=== PATIENT | female | born 1960 | race Caucasian/White ===

== ENCOUNTER 2016-10-18 15:21 | Emergency (ER) | payer MEDICARE ==
[~2016-10-18] VITALS: Ht 162.6 cm; Wt 63.5 kg
[~2016-10-18 15:21] MED LIST: ASPI81TA85 PO; CYMB1CAP4 PO; FLUO20CA8 PO; INSUHUMDS SC; INSULANT SC; LAMI25TA PO; TRAZ50TA4 PO
[2016-10-18 15:22] VITALS: BP 135/64
[2016-10-18] MEDS ORDERED: DULO30CA PO (15:32)
[2016-10-18] MEDS ORDERED: CYMB60CA3 PO (15:32)
[2016-10-18] MEDS ORDERED: LAMI1TAB8 PO (15:32)
[2016-10-18] MEDS ORDERED: ZITHTAB PO (15:49)
[2016-10-18] MEDS ORDERED: FLON1SPR (15:49)
== END 2016-10-18 15:59 | disposition home or self-care (01) ==
LOC: M ED 15:57
DX: J32.9 Chronic sinusitis, unspecified (principal); E10.9 Type 1 diabetes mellitus without complications; Z79.4 Long term (current) use of insulin; Z79.82 Long term (current) use of aspirin; Z79.899 Other long term (current) drug therapy

== ENCOUNTER 2016-11-26 11:53 | Emergency (ER) | payer MEDICARE ==
[~2016-11-26] VITALS: Ht 162.6 cm; Wt 62.1 kg
[~2016-11-26 11:53] MED LIST changes: +CYMB60CA3 PO; +DULO30CA PO; +FLON1SPR; +LAMI1TAB8 PO; +ZITHTAB PO
[2016-11-26] MEDS ORDERED: ROBA500T PO (12:49)
[2016-11-26] MEDS ORDERED: MOBI7.5T10 PO (12:49)
[2016-11-26 13:05] VITALS: BP 115/71
--- NOTE | 2016-11-26 15:08 | REP ---
LUMBAR SPINE, FIVE VIEWS: HISTORY: Back pain. There is no acute fracture. The L3-4 through L5-S1 intervertebral discs are decreased in height consistent with disc degeneration. Osteophytes are present on L3 and L4. There is narrowing of the L4-5 and L5-S1 facet joints. There are 4 mm of grade 1 spondylolisthesis of L3 on L4. IMPRESSION: Degenerative change as described above. Signed by Mazin Almanza MD 11/26/2016 03:10 P
== END 2016-11-26 13:06 | disposition home or self-care (01) ==
LOC: M ED 12:19
DX: M51.36 Other intervertebral disc degeneration, lumbar region (principal); E10.9 Type 1 diabetes mellitus without complications; F41.9 Anxiety disorder, unspecified; F33.9 Major depressive disorder, recurrent, unspecified; Z79.899 Other long term (current) drug therapy; Z79.82 Long term (current) use of aspirin; Z79.4 Long term (current) use of insulin

== ENCOUNTER 2017-07-09 15:10 | Inpatient (IN) | payer MEDICARE ==
[~2017-07-09] VITALS: Ht 162.6 cm; Wt 63.6 kg
[~2017-07-09 15:10] MED LIST changes: +MOBI4TAB PO; +ROBA500T PO; +TRAZ50TA11 PO; -TRAZ50TA4 PO
[2017-07-09] MEDS ORDERED: LORA0.5T11 PO (15:20)
[2017-07-09] MEDS ORDERED: NS 1,000 ML IV SCH (15:29)
[2017-07-09 15:47] LABS: BASO # 0.1 10^3/uL (0.0-0.2); BASO % 0.3 % (0.0-1.0); IMMATURE GRANULOCYTE % 0.6 % (0-0); LYMPH # 0.5 10^3/uL (1.5-4.5); LYMPH % 2.4 % (24.0-44.0); MEAN CORPUSCULAR HEMOGLOBIN 32.1 pg (27.0-33.0); MEAN CORPUSCULAR HGB CONC 32.8 g/dl (32.0-36.5); MEAN CORPUSCULAR VOLUME 97.9 fl (80.0-96.0); MONO # 1.3 10^3/uL (0.0-0.8); MONO % 6.2 % (0.0-5.0); NEUTROPHILS # 19.4 10^3/uL (1.8-7.7); NEUTROPHILS % 90.5 % (36.0-66.0); PLATELET COUNT, AUTOMATED 364 10^3/uL (150-450); RED CELL DISTRIBUTION WIDTH 11.9 % (11.5-14.5); WHITE BLOOD COUNT 21.5 10^3/uL (4.0-10.0)
[2017-07-09 15:48] LABS: VENOUS BASE EXCESS -13.2 (-2.0-2.0); VENOUS O2 SATURATION 67.8 % (60.0-80.0); VENOUS PARTIAL PRESSURE CO2 41.1 mmHg (38.0-50.0); VENOUS PARTIAL PRESSURE O2 38.2 mmHg (30.0-50.0); VENOUS STANDARD HCO3 13.9 MEQ/L
[2017-07-09] MEDS ORDERED: NS 1,000 ML IV ONE ×2 (16:00→17:00)
[2017-07-09 16:36] LABS: ALBUMIN 4.2 GM/DL (3.2-5.2); ALBUMIN/GLOBULIN RATIO 0.95 (1.00-1.93); BILIRUBIN,DIRECT 0.1 MG/DL (0.0-0.2); BILIRUBIN,TOTAL 0.7 MG/DL (0.2-1.0); CALCIUM LEVEL 9.6 MG/DL (8.5-10.1); CREATININE FOR GFR 1.3 MG/DL (0.55-1.02); GLOMERULAR FILTRATION RATE 44.9 (>51); POTASSIUM SERUM 4.3 MEQ/L (3.5-5.1); TOTAL PROTEIN 8.6 GM/DL (6.4-8.2)
[2017-07-09] MEDS ORDERED: BUSP10TA PO (17:07)
[2017-07-09] MEDS ORDERED: ONDANSETRON 4MG/2ML VIAL (J2405) As Ordered ONE (17:37)
[2017-07-09] MEDS ORDERED: ONDANSETRON 4MG/2ML VIAL (J2405) IV ONE (17:45)
[2017-07-09 17:48] LABS: ABG BASE EXCESS -12.5 (-2.0-2.0); ABG PARTIAL PRESSURE O2 113.6 mmHg (75.0-100.0); ABG STANDARD HCO3 14.9 MEQ/L (22.0-26.0); ABG TOTAL CO2 11.6 MEQ/L (22.0-29.0); ABG pH (ARTERIAL) 7.337 UNITS (7.350-7.450)
[2017-07-09 18:50] LABS: BASO % 0.2 % (0.0-1.0); IMMATURE GRANULOCYTE % 0.8 % (0-0); LYMPH # 0.5 10^3/uL (1.5-4.5); LYMPH % 2.5 % (24.0-44.0); MEAN CORPUSCULAR HGB CONC 32.8 g/dl (32.0-36.5); MEAN CORPUSCULAR VOLUME 97.3 fl (80.0-96.0); MONO # 0.5 10^3/uL (0.0-0.8); MONO % 2.8 % (0.0-5.0); NEUTROPHILS # 17.1 10^3/uL (1.8-7.7); NEUTROPHILS % 93.7 % (36.0-66.0); PLATELET COUNT, AUTOMATED 281 10^3/uL (150-450); RED CELL DISTRIBUTION WIDTH 12.1 % (11.5-14.5); WHITE BLOOD COUNT 18.2 10^3/uL (4.0-10.0)
[2017-07-09] MEDS ORDERED: SODIUM CHLORIDE 0.9% 1000 ML IV ONE (19:00)
--- NOTE | 2017-07-09 19:20 | REP ---
REASON FOR EXAM: Headache. COMPARISON: 12/12/2013 TECHNIQUE: 4.5 mm contiguous transaxial sections were obtained from the skull base to the cerebral convexities with thin cuts through the posterior fossa without the administration of intravenous contrast. FINDINGS: The ventricles and sulci are consistent with the patient's age. There are no extra-axial fluid collections. There is no mass effect. The deep cerebral white matter is consistent with the patient's age. The orbital and petrous structures, cerebellopontine angles, and posterior fossa are unremarkable. The sella turcica, cavernous, and paracavernous structures are essentially unremarkable. The visualized portions of the paranasal sinuses and mastoid air cells are clear. Images of the skull base show no gross abnormality. There has bene no significant change from the prior exam. IMPRESSION: Essentially unremarkable CT examination of the brain. Signed by Satnam Nath DO 07/09/2017 07:40 P
[2017-07-09 19:21] LABS: ANION GAP 20 MEQ/L (8-16); BLOOD UREA NITROGEN 23 MG/DL (7-18); CALCIUM LEVEL 8.9 MG/DL (8.5-10.1); CARBON DIOXIDE LEVEL 14 MEQ/L (21-32); CHLORIDE LEVEL 106 MEQ/L (98-107); CREATININE FOR GFR 0.95 MG/DL (0.55-1.02); GLOMERULAR FILTRATION RATE > 60.0 (>51); POTASSIUM SERUM 4.8 MEQ/L (3.5-5.1); SODIUM LEVEL 140 MEQ/L (136-145)
[2017-07-09 19:22] LABS: GLUCOSE, FASTING 407 MG/DL (70-105)
[2017-07-09] MEDS ORDERED: INSULIN IV RATE CHANGE DOCUMENTATION ML/HR XX SCH (19:30)
[2017-07-09] MEDS ORDERED: INSULIN HUMAN REGULAR 100 UNITS in NS 99 ML IV SCH ×2 (19:30→23:00)
--- NOTE | 2017-07-09 20:10 | REPUSA ---
CT of the abdomen and pelvis without contrast Clinical statement: vomiting. Technique: Multiple axial CT images were obtained from the base of the lungs to the floor of the pelv is utilizing 5 mm axial slices without administration of contrast. Coronal and sagittal reconstructio ns were also obtained. No comparison is available. Findings: Chest: The visualized lung bases are clear. Abdomen: The kidneys are normal in size bilaterally. There is no evidence of hydronephrosis. Small no nobstructing stones are seen in the kidneys bilaterally measuring up to 2 mm. Diffuse low attenuation of the hepatic parenchyma is noted. The spleen, pancreas, gallbladder and adrenal glands are unremar kable. The aorta demonstrates normal caliber and contour. There is no abdominal lymphadenopathy or as cites. Pelvis: The bowel is unremarkable, with no obstructive or inflammatory changes. The urinary bladder i s within normal limits. There is no pelvic lymphadenopathy or ascites. The other pelvic structures ap pear unremarkable. Bones: There are no suspicious osseous abnormalities seen. Impression: 1. No obstructive or inflammatory bowel changes. 2. Bilateral nonobstructing nephrolithiasis. 3. Moderate diffuse fatty infiltration of the liver.
--- NOTE | 2017-07-09 20:19 | ECGEPIP ---
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
[2017-07-09] MEDS: NS 1,000 ML IV SCH ×2 (21:01→23:47)
[2017-07-09] MEDS ORDERED: POTASSIUM CHL PWD 20 MEQ PACKET PO ONE (21:15)
[2017-07-09] MEDS ORDERED: ASPIRIN 81 MG ENTERIC TAB PO PRN (21:15)
[2017-07-09] MEDS ORDERED: KCL 20MEQ IN 100ML SWI (KRUN) 20 MEQ in APPROPRIATE DILUENT 1 EA IV ONE ×2 (21:15)
[2017-07-09] MEDS ORDERED: POTASSIUM PHOSPHATE INJ 20 MMOL in D5W 250 ML IV ONE (21:15)
[2017-07-09] MEDS ORDERED: KCL 10MEQ IN 100ML SWI (KRUN) 10 MEQ in APPROPRIATE DILUENT 1 EA IV ONE ×2 (21:15)
[2017-07-09 23:00] VITALS: BP 105/54
[2017-07-09 23:34] VITALS: BP 104/52
[2017-07-09] MEDS: LORazepam 0.5 MG TAB PO PRN (23:47)
[2017-07-09] MEDS: DULoxetine 30 MG CAP (CYMBALTA) PO SCH (23:47)
[2017-07-09] MEDS: busPIRone 10 MG TAB PO SCH (23:51)
[2017-07-10] VITALS (10 sets, daily range): BP systolic 81–100; BP diastolic 46–56
--- NOTE | 2017-07-10 00:17 | HPE ---
DATE OF ADMISSION: 07/09/2017 ADMITTING PHYSICIAN: Dr. Hasmukh Tyler PRIMARY CARE PROVIDER: Unknown. HISTORY OF THE PRESENT ILLNESS: This is a pleasant 56-year-old female who was presenting to the emergency department (ED) for not feeling well since the evening prior to presentation. She is partially answering questions appropriately but then gets sidetracked significantly during the exam. She is an insulin-dependent diabetic who wears a MiniMed 522 insulin pump. She notes that for her diabetes, she follows with [facility], but she is unable to elaborate some more. She currently states she is not seeing a primary care physician in the [place] area. According to the patient, she got sick the night before, having a headache, and she took some insulin and went to bed. When she woke up this morning, still felt sick, checked her glucose level, which was at the 325 level. She took some more insulin, but when she rechecked her glucose a couple hours later, it was still 399, and she came to the ED in the afternoon time. She states that she is having nausea and vomiting symptoms and having significant polydipsia. She states this is the first time she has had these symptoms and never had them in the past. She has a decreased appetite at this time. She states that she called her doctor's office and told her to come to the ED for her insulin levels must be adjusted. She is unable to elaborate some more. PAST MEDICAL HISTORY: 1. Insulin-dependent diabetes. 2. Bipolar disorder. 3. Anxiety disorder. PAST SURGICAL HISTORY: section. HOME MEDICATIONS: - aspirin 81 mg twice a day as needed for pain - buspirone 10 mg by mouth twice a day - Cymbalta 30 mg capsule nightly - Cymbalta 60 mg by mouth daily - lorazepam 0.5 mg by mouth twice a day as needed for anxiety - insulin human lispro one unit per 0.01 mL injection insulin pump - Lamictal 150 mg by mouth daily SOCIAL HISTORY: The patient lives in [place], currently , lives with her dog. Denies tobacco and illicit drug use. Admits to drinking socially, alcohol. FAMILY HISTORY: Noncontributory. REVIEW OF SYSTEMS: As noted in the history of the present illness, the patient was unable to fully describe all the symptoms that she is experiencing. She did state she has polydipsia, dry mouth, nausea, vomiting, headache. Denies any fevers or chills. Denies any palpitations or shortness of breath, or trouble breathing. Admits to foggy mind and decreased appetite. PHYSICAL EXAMINATION: VITAL SIGNS: Temperature 97.0, pulse 104, respiratory rate 16, blood pressure 122/60, MAP of 80, pulse oximetry of 100% on room air. GENERAL: She is a pleasant 56-year-old female who appears her stated age, well nourished, well developed, altered mental, slightly lethargic during examination. She is very pleasant and is appropriately answering some of the questions. HEENT: Normocephalic, atraumatic. No scleral icterus or conjunctival injection appreciated. No nystagmus. Extraocular movements are intact bilaterally. Mucous membranes slightly dry. Pharynx is pink with no cobblestoning. NECK: Supple. No lymphadenopathy or jugular venous distention (JVD) appreciated. CHEST: Tachycardic rhythm and rate. No murmurs, rubs or gallops, though. LUNGS: Fair to auscultate bilaterally. No wheezing, rales or rhonchi appreciated. ABDOMEN: Soft, nontender, nondistended abdomen. Positive bowel sounds throughout. No rebound, no guarding. Insulin pump insertion point appreciated on the left side. No erythema or irritated at the area. EXTREMITIES: Pulses 2+ bilaterally in the dorsalis pedis. No pedal edema is appreciated. SKIN: [place], dry and warm. No tenting is appreciated. Capillary reflux is less than 2 seconds. NEUROLOGIC: The patient is alert slightly, appropriately answering some questions but very sluggishly answering a lot of the questions. Even patient understands this is not close to her baseline. LABORATORY: Hematology: WBC of 18.2, hemoglobin 13.3, hematocrit 39.9, platelets of 281. Blood gas: ABG pH of 7.337, pCO2 of 21.0, HCO3 of 113.6, base excess -12.5. Chemistries: Sodium 140, potassium 4.8, chloride of 106, carbon dioxide 14, BUN of 23, creatinine of 0.95, anion gap of 20, fasting glucose of 407, lactic acid of 4.7, calcium of 8.9. Toxicology showed beta-hydroxybutyrate of greater than 46. IMAGING: Head CT showed unremarkable CT examination of the brain. Abdomen and pelvis CT: Impression: (1) No obstruction or inflammatory bowel changes. (2) Bilateral nonobstructing nephrolithiasis. (3) Moderate diffuse fatty infiltration of the liver. EKG done in the ER showed sinus rhythm, rate of 93, [place] of 166, QRSD 98, QT 391, QTc 488. ASSESSMENT AND PLAN: This is a 56-year-old female with a pertinent medical history of insulin-dependent diabetes, presenting today for altered mental status and hyperglycemia. The patient will be admitted for diabetic ketoacidosis. 1. Diabetic ketoacidosis. With the patient's altered mental status and elevated glucose of 407 and a beta-hydroxybutyrate of 46, the patient has diabetic ketoacidosis (DKA) and will be admitted to the intensive care unit (ICU). We will follow the DKA protocol. In the ER, the patient has already gotten two 1-liter boluses, and she has been started on regular insulin at 6 units. We have ordered fluids at normal saline at 150 mL per hour. We have also added potassium supplementation as well. 2. History of bipolar disorder. We have held the patient's Lamictal for now and currently pending Lamictal levels. 3. General anxiety disorder. The patient will continue with her Cymbalta home dosage and has lorazepam as needed for anxiety. 4. Deep vein thrombosis (DVT) prophylaxis. Lovenox 40 mg subcu daily. 5. Diet: Consistent carbohydrate diet. My attending on this case is Dr. Hasmukh Tyler. Patient will be admitted to Dr. Lore Morales in the AM. My faculty preceptor for this patient encounter was physically present during the encounter and was fully available. All aspects of the patient interview, examination, medical decision making process, and medical care plan development were reviewed and approved by the faculty preceptor. The faculty preceptor is aware and concurs with the plan as stated in the body of this note and will attest to such by his/her cosignature. NATASHA
[2017-07-10 00:41] LABS: CALCIUM LEVEL 8.9 MG/DL (8.5-10.1); CREATININE FOR GFR 1.03 MG/DL (0.55-1.02); GLOMERULAR FILTRATION RATE 58.8 (>51); POTASSIUM SERUM 4.7 MEQ/L (3.5-5.1)
[2017-07-10] MEDS: D5W/0.45% SODIUM CHLORIDE 1,000 ML IV SCH ×2 (00:45→11:20)
[2017-07-10] MEDS: INSULIN IV RATE CHANGE DOCUMENTATION ML/HR XX SCH ×7 (00:47→15:00)
[2017-07-10 05:19] LABS: MEAN CORPUSCULAR HEMOGLOBIN 32.4 pg (27.0-33.0); MEAN CORPUSCULAR HGB CONC 33.5 g/dl (32.0-36.5); MEAN CORPUSCULAR VOLUME 96.5 fl (80.0-96.0); PLATELET COUNT, AUTOMATED 259 10^3/uL (150-450); RED CELL DISTRIBUTION WIDTH 12.5 % (11.5-14.5); WHITE BLOOD COUNT 22.1 10^3/uL (4.0-10.0)
[2017-07-10 05:34] LABS: ANION GAP 9 MEQ/L (8-16); BLOOD UREA NITROGEN 19 MG/DL (7-18); CALCIUM LEVEL 8.3 MG/DL (8.5-10.1); CARBON DIOXIDE LEVEL 21 MEQ/L (21-32); CHLORIDE LEVEL 110 MEQ/L (98-107); CREATININE FOR GFR 0.96 MG/DL (0.55-1.02); GLOMERULAR FILTRATION RATE > 60.0 (>51); GLUCOSE, FASTING 229 MG/DL (70-105); POTASSIUM SERUM 4.5 MEQ/L (3.5-5.1); SODIUM LEVEL 140 MEQ/L (136-145)
[2017-07-10] MEDS ORDERED: SODIUM CHLORIDE 0.9% 1000 ML IV ONE (07:45)
--- NOTE | 2017-07-10 08:10 | REP ---
Portable chest, 08:13 a.m., single AP view, patient sitting: The lung holden are clear. The cardiac size is normal. The sophia, mediastinum, and bony thorax are unremarkable. Impression: Negative portable chest. Signed by Bradley Murrell MD 07/10/2017 08:01 A
[2017-07-10] MEDS: busPIRone 10 MG TAB PO SCH ×2 (08:23→20:32)
[2017-07-10] MEDS: ENOXAPARIN 40 MG/0.4 ML SYRINGE (J1650) SC SCH (08:23)
[2017-07-10] MEDS: CHLORHEXIDINE ORAL RINSE 0.12%/15ML 120ML BOTTLE MT SCH ×2 (08:24→20:32)
[2017-07-10] MEDS: DULoxetine 30 MG CAP (CYMBALTA) PO SCH ×2 (08:24→20:32)
[2017-07-10 08:26] LABS: MEAN CORPUSCULAR HEMOGLOBIN 32.4 pg (27.0-33.0); MEAN CORPUSCULAR VOLUME 95.2 fl (80.0-96.0); PLATELET COUNT, AUTOMATED 275 10^3/uL (150-450); RED CELL DISTRIBUTION WIDTH 12.6 % (11.5-14.5); WHITE BLOOD COUNT 24.1 10^3/uL (4.0-10.0)
[2017-07-10 08:31] LABS: ADD MANUAL DIFFER YES; DIFF SLIDE NUMBER 111; POSITIVE DIFF POS FLAG; VENOUS BASE EXCESS -5.6 (-2.0-2.0); VENOUS O2 SATURATION 87.9 % (60.0-80.0); VENOUS PARTIAL PRESSURE CO2 38.3 mmHg (38.0-50.0); VENOUS PARTIAL PRESSURE O2 51.6 mmHg (30.0-50.0); VENOUS STANDARD HCO3 19.7 MEQ/L; VENOUS TOTAL CO2 20.9 MEQ/L (24.0-28.0)
[2017-07-10 08:54] LABS: ANION GAP 11 MEQ/L (8-16); BLOOD UREA NITROGEN 17 MG/DL (7-18); CALCIUM LEVEL 8.8 MG/DL (8.5-10.1); CARBON DIOXIDE LEVEL 21 MEQ/L (21-32); CHLORIDE LEVEL 110 MEQ/L (98-107); CREATININE FOR GFR 0.96 MG/DL (0.55-1.02); GLOMERULAR FILTRATION RATE > 60.0 (>51); GLUCOSE, FASTING 200 MG/DL (70-105); POTASSIUM SERUM 4.4 MEQ/L (3.5-5.1); SODIUM LEVEL 142 MEQ/L (136-145)
[2017-07-10] MEDS ORDERED: IPRATROPIUM 0.5MG/ALBUTEROL 2.5MG INH SOL UD 3ML (DUONEB)(J7620) NEB PRN (10:30)
[2017-07-10] MEDS: guaiFENesin ER 600 MG TAB PO SCH ×2 (11:19→20:32)
[2017-07-10 16:38] LABS: ANION GAP 5 MEQ/L (8-16); BLOOD UREA NITROGEN 14 MG/DL (7-18); CALCIUM LEVEL 8.5 MG/DL (8.5-10.1); CARBON DIOXIDE LEVEL 25 MEQ/L (21-32); CHLORIDE LEVEL 109 MEQ/L (98-107); CREATININE FOR GFR 0.71 MG/DL (0.55-1.02); GLOMERULAR FILTRATION RATE > 60.0 (>51); GLUCOSE, FASTING 179 MG/DL (70-105); SODIUM LEVEL 139 MEQ/L (136-145)
[2017-07-10] MEDS ORDERED: HumaLOG INSULIN (NovoLOG) PER UNIT XX SCH (18:30)
[2017-07-10 21:05] LABS: ANION GAP 7 MEQ/L (8-16); BLOOD UREA NITROGEN 13 MG/DL (7-18); CALCIUM LEVEL 9.2 MG/DL (8.5-10.1); CARBON DIOXIDE LEVEL 24 MEQ/L (21-32); CHLORIDE LEVEL 107 MEQ/L (98-107); CREATININE FOR GFR 0.81 MG/DL (0.55-1.02); GLOMERULAR FILTRATION RATE > 60.0 (>51); GLUCOSE, FASTING 239 MG/DL (70-105); POTASSIUM SERUM 3.2 MEQ/L (3.5-5.1); SODIUM LEVEL 138 MEQ/L (136-145)
[2017-07-10] MEDS ORDERED: POTASSIUM CHLORIDE 10 MEQ SR TABLET PO ONE (21:30)
[2017-07-11] VITALS: BP 112/55
[2017-07-11 04:00] VITALS: BP 122/61
[2017-07-11 04:49] LABS: MEAN CORPUSCULAR HEMOGLOBIN 32.8 pg (27.0-33.0); MEAN CORPUSCULAR HGB CONC 34.1 g/dl (32.0-36.5); PLATELET COUNT, AUTOMATED 208 10^3/uL (150-450); RED CELL DISTRIBUTION WIDTH 12.8 % (11.5-14.5); WHITE BLOOD COUNT 12.1 10^3/uL (4.0-10.0)
[2017-07-11 05:33] LABS: ANION GAP 6 MEQ/L (8-16); BLOOD UREA NITROGEN 10 MG/DL (7-18); CALCIUM LEVEL 8.8 MG/DL (8.5-10.1); CARBON DIOXIDE LEVEL 25 MEQ/L (21-32); CHLORIDE LEVEL 108 MEQ/L (98-107); CREATININE FOR GFR 0.67 MG/DL (0.55-1.02); GLOMERULAR FILTRATION RATE > 60.0 (>51); GLUCOSE, FASTING 275 MG/DL (70-105); POTASSIUM SERUM 4.2 MEQ/L (3.5-5.1); SODIUM LEVEL 139 MEQ/L (136-145)
[2017-07-11 08:00] VITALS: BP 108/60
[2017-07-11] MEDS: CHLORHEXIDINE ORAL RINSE 0.12%/15ML 120ML BOTTLE MT SCH (08:20)
[2017-07-11] MEDS: busPIRone 10 MG TAB PO SCH (08:21)
[2017-07-11] MEDS: guaiFENesin ER 600 MG TAB PO SCH (08:21)
[2017-07-11] MEDS: DULoxetine 30 MG CAP (CYMBALTA) PO SCH (08:21)
[2017-07-11] MEDS: ENOXAPARIN 40 MG/0.4 ML SYRINGE (J1650) SC SCH (08:25)
[2017-07-11] MEDS: LORazepam 0.5 MG TAB PO PRN (12:13)
--- NOTE | 2017-07-11 15:02 | IPN ---
DATE: 07/10/2017 The patient is a 56-year-old female who is presenting to the emergency department not feeling well since the evening prior. On initial presentation, the patient was alert and cooperative. The patient does have a history of insulin-dependent diabetes. She was on a Mini-Med 522 insulin pump. The patient reported that she noticed her pump was not functioning. She subsequently called the company and they gave her advice on how to fix it. She was unable to fix it. She then called her primary care provider and was instructed to go to the emergency department because insulin was not working. When she presented to the emergency department, her blood glucose was 399. She was admitted to the intensive care unit (ICU) under diabetic ketoacidosis. She was given IV fluids, given potassium, started on regular insulin. The patient was treated with DKA protocol. This morning, the patient was pleasant and conversational. The patient admitted that she does not remember exactly when she feels that her insulin pump started malfunctioning; however, she does remember that she was suffering from bronchitis the week prior and she was on antibiotics for it. Chest x-ray was negative. CT of the head was normal. Pending blood cultures. CT of the abdomen showed fatty infiltrates of the liver. PHYSICAL EXAMINATION: Vital signs: Temperature 98.6, pulse is 94, respiratory rate is 18, blood pressure is 87/55. The patient runs in this category and that is around her normal blood pressure level. Pulse oximetry is 95% on room air. GENERAL: The patient is alert, very conversational. The patient is oriented to time, place, person. CARDIAC: S1, S2 present. Within normal limits. No murmurs, rubs or gallops are detected. LUNGS: Clear to auscultation anteriorly bilaterally and posterior. ABDOMEN: Soft, nontender. No organomegaly detected. No pain to palpation. EXTREMITIES: No cyanosis. No discoloration. No bruising. Pulses present in all extremities. ASSESSMENT: 1. Diabetic ketoacidosis. The patient had an insulin drip and her glucose was titrated down to 200. Her anion gap normalized to 11. Insulin drip was discontinued. The patient had her potassium also normalized by IV. The patient's BUN also normalized. The patient's creatinine also normalized. The patient was discontinued from diabetic protocol. She was started on before food and nightly fingerstick glucose with a consistent carbohydrate diet. She was also started on Humalog at the use of patient's discretion. The patient had her underwriting sales representative reassess the insulin pump and was told that the insulin pump was functioning well. The patient was allowed to use her insulin pump as she does at home. At this moment, it is my impression that the patient has had her DKA resolved. We will continue to monitor the patient for any changes. 2. Generalized anxiety disorder. The patient will be allowed to continue on her Cymbalta at her home dosage, and she also has lorazepam for anxiety. 3. Deep vein thrombosis (DVT) prophylaxis. The patient is on Lovenox 40 mg subcutaneously daily. 4. Diet will consist of consistent carbohydrate diet. My faculty preceptor for this patient encounter was physically present during the encounter and was fully available. All aspects of the patient interview, examination, medical decision making process, and medical care plan development were reviewed and approved by the faculty preceptor. The faculty preceptor is aware and concurs with the plan as stated in the body of this note and will attest to such by his/her co-signature. NATASHA
--- NOTE | 2017-07-11 16:10 | DS.PDOC ---
Discharge Summary General Date of Admission Jul 09, 2017 at 21:01 Date of Discharge 07/11/2017 Attending Physician: AYSHA MUPRHY MD Discharge Summary PROCEDURES PERFORMED DURING STAY: EKG ADMITTING/DISCHARGE DIAGNOSES 1. Diabetic ketoacidosis 2. Bipolar disorder. 3. Anxiety COMPLICATIONS/CHIEF COMPLAINT: DKA (Diabetic Ketoacidosis). HISTORY OF PRESENT ILLNESS/HOSPITAL COURSE: A 56-year-old female, with a history of insulin-dependent diabetes who has a MiniMed 522 insulin pump, presented to the ED for not feeling well since the prior evening. When she woke up in the morning, she checked her blood glucose and it was 325, she would then take some insulin and rechecked her blood sugar 2 hours later and it was 399. That is why she came to the ED. On Presentation she complained of nausea, vomiting and significant polydipsia, with decreased appetite. She did admit to feeling like she is getting over an acute episode of bronchitis. In the the ED her sugar was 347. She was admitted to ICU for DKA. She was started fluids, insulin drip, and potassium replacement. By the end of the second day of hospitalization, patient had a normalized bicarbonate, carbon dioxide, her anion gap had also normalized, along with her ph. Pateint was alert and did not exhibit any signs of distress or altered mental status.She was allowed to use her home insulin pump after a merchandising representative of the insulin pump company determine that the pump was functioning well. She was started on a low carbohydrate diet, and allowed to adjust her insulin as she does at home. On day of discharge patient made a complete recovery labs are normalized and was stable for discharge. DISCHARGE MEDICATIONS: Please see below. ALLERGIES: Please see below. PHYSICAL EXAMINATION ON DISCHARGE: VITAL SIGNS: Please see below. The patient is alert, very conversational. The patient is oriented to time, place, person. CARDIAC: S1, S2 present. Within normal limits. No murmurs, rubs or gallops are detected. LUNGS: Clear to auscultation anteriorly bilaterally and posterior. ABDOMEN: Soft, nontender. No organomegaly detected. No pain to palpation. EXTREMITIES: No cyanosis. No discoloration. No bruising. Pulses present in all extremities. LABORATORY DATA: Please see below. IMAGING: Head CT:Essentially unremarkable CT examination of the brain. CT of the abdomen pelvis with contrast:Impression: no obstructive or inflammatory bowel changes. Bilateral nonobstructing nephrolithiasis. Moderate diffuse fatty infiltration of the liver. Chest x-ray:Negative portable chest. PROGNOSIS: Stable ACTIVITY: As tolerated DIET: Low carbohydrate, diabetic diet DISCHARGE PLAN: Discharged home DISPOSITION: Fair DISCHARGE INSTRUCTIONS: 1. Follow-up a new PCP in the [facility] clinic 2. Monitor blood sugar levels 3. Show proper function insulin pump ITEMS TO FOLLOWUP ON ON OUTPATIENT: 1. PCP needs to make a referral to local anesthesiology resident who is capable of management 2. Diabetes, insulin-dependent. 3. Anxiety, Bipolar disorder. DISCHARGE CONDITION: Stable. TIME SPENT ON DISCHARGE: Greater than 40 minutes. Vital Signs/I&Os Vital Signs Date Time Temp Pulse Resp B/P (MAP) Pulse Ox O2 Delivery O2 Flow Rate FiO2 07/11/17 08:00 98.2 81 17 108/60 (76) 98 Room Air I&O- Last 24 Hours up to 6 AM 07/12/17 06:00 Intake Total 480 ml Output Total 600 ml Balance -120 ml Laboratory Data Labs 24H Laboratory Tests 2 07/10/17 14:22: Bedside Glucose (Misc Panel) 203H 07/10/17 15:09: Bedside Glucose (Misc Panel) 168H 07/10/17 15:58: Anion Gap 5L, Glomerular Filtration Rate > 60.0, Blood Urea Nitrogen 14, Creatinine 0.71, Sodium Level 139, Potassium Level 4.0, Chloride Level 109H, Carbon Dioxide Level 25, Calcium Level 8.5, Total Creatine Kinase 81, Creatine Kinase MB 2.0, Creatine Kinase MB Relative Index 2.46, Troponin I 0.13H, C- Reactive Protein, Quantitative 1.18H 07/10/17 16:12: Bedside Glucose (Misc Panel) 164H 07/10/17 17:06: Bedside Glucose (Misc Panel) 174H 07/10/17 18:30: Bedside Glucose (Misc Panel) 158H 07/10/17 19:39: Bedside Glucose (Misc Panel) 217H 07/10/17 19:59: Anion Gap 7L, Glomerular Filtration Rate > 60.0, Blood Urea Nitrogen 13, Creatinine 0.81, Sodium Level 138, Potassium Level 3.2L, Chloride Level 107, Carbon Dioxide Level 24, Calcium Level 9.2 07/11/17 04:25: Nucleated Red Blood Cells % (auto) 0.0, Anion Gap 6L, Glomerular Filtration Rate > 60.0, Blood Urea Nitrogen 10, Creatinine 0.67, Sodium Level 139, Potassium Level 4.2#, Chloride Level 108H, Carbon Dioxide Level 25, Calcium Level 8.8, Total Creatine Kinase 100, Magnesium Level 2.0, Creatine Kinase MB 1.6, Creatine Kinase MB Relative Index 1.60, Troponin I 0.11H 07/11/17 08:43: Bedside Glucose (Misc Panel) 231H 07/11/17 11:18: Bedside Glucose (Misc Panel) 307H CBC/BMP Laboratory Tests 07/10/17 15:58 Calcium Level 8.5, Total Creatine Kinase 81 07/10/17 19:59 Calcium Level 9.2 07/11/17 04:25 Calcium Level 8.8, Total Creatine Kinase 100, Red Blood Count 3.51 L, Mean Corpuscular Volume 96.0, Mean Corpuscular Hemoglobin 32.8, Mean Corpuscular Hemoglobin Concent 34.1, Red Cell Distribution Width 12.8 FSBS Laboratory Tests Test 07/10/17 14:22 07/10/17 15:09 07/10/17 16:12 07/10/17 17:06 Range/Units Bedside Glucose (Misc Panel) 203 168 164 174 70-105 MG/DL Test 07/10/17 18:30 07/10/17 19:39 07/11/17 08:43 07/11/17 11:18 Range/Units Bedside Glucose (Misc Panel) 158 217 231 307 70-105 MG/DL Microbiology Microbiology 07/09/17 Blood Culture - Preliminary, Resulted No growth after 24 hours . All specim... 07/09/17 Blood Culture - Preliminary, Resulted No growth after 24 hours . All specim... 07/10/17 Respiratory Virus Panel (PCR) (ALLIE) - Final, Complete Discharge Medications Scheduled Buspirone HCl (Buspirone HCl) 10 Mg Tab, 10 MG PO BID, (Reported) Duloxetine Hcl (Cymbalta) 30 Mg Cap, 30 MG PO QHS, (Reported) Duloxetine Hcl (Cymbalta) 60 Mg Cap, 60 MG PO DAILY, (Reported) Insulin Human Lispro (Humalog) 1 Units/0.01 Ml Inj, SC ASDIRECTED, (Reported) PATIENT HAS INSULIN PUMP Lamotrigine (Lamictal) 150 Mg Tab, 150 MG PO DAILY, (Reported) Scheduled PRN Aspirin (Aspir-81) 81 Mg Tab, 81 MG PO BID PRN for PAIN, (Reported) Lorazepam (Lorazepam) 0.5 Mg Tab, 0.5 MG PO BID PRN for ANXIETY, (Reported) Allergies Coded Allergies: No Known Drug Allergy (Verified Allergy, Unknown, 12/12/13) GME ATTESTATION GME ATTESTATION My faculty preceptor for this patient encounter was physically present during the encounter and was fully available. All aspects of the patient interview, examination, medical decision making process, and medical care plan development were reviewed and approved by the faculty preceptor. The faculty preceptor is aware and concurs with the plan as stated in the body of this note and will attest to such by his/her cosignature. CHIKIS WATTS DO Jul 11, 2017 14:16
== END 2017-07-11 13:20 | disposition home or self-care (01) | DRG 639 ==
LOC: M ED 15:10 → M ED INP 21:01 → M ICU 23:13
PROVIDERS: ADMIT Hospitalist; ATTEND Internal Medicine
DX: E11.10 Type 2 diabetes mellitus with ketoacidosis without coma (principal); R41.82 Altered mental status, unspecified; F41.1 Generalized anxiety disorder; F31.9 Bipolar disorder, unspecified; Z79.82 Long term (current) use of aspirin; Z79.4 Long term (current) use of insulin; Z79.899 Other long term (current) drug therapy; Z96.41 Presence of insulin pump (external) (internal)

== ENCOUNTER 2017-08-31 11:48 | Emergency (ER) | payer MEDICARE | END 2017-08-31 12:41 | disposition left against medical advice (07) | LOC: M ED 11:48 | DX: Z53.29 Procedure and treatment not carried out because of patient's decision for other reasons (principal) ==

== ENCOUNTER → 2017-11-30 | Outpatient (REF) | payer MEDICARE ==
[2017-11-30 16:38] LABS: ANION GAP 6 MEQ/L (8-16); BLOOD UREA NITROGEN 10 MG/DL (7-18); CALCIUM LEVEL 9.6 MG/DL (8.5-10.1); CARBON DIOXIDE LEVEL 32 MEQ/L (21-32); CHLORIDE LEVEL 101 MEQ/L (98-107); CHOLESTEROL LEVEL 212 MG/DL (<200); CHOLESTEROL RISK RATIO 1.696 (<5); CREATININE FOR GFR 0.71 MG/DL (0.55-1.30); GLOMERULAR FILTRATION RATE > 60.0 (>51); GLUCOSE, FASTING 125 MG/DL (70-100); HDL CHOLESTEROL 125 MG/DL (>40); LDL CHOLESTEROL 76.6 MG/DL (<100); NON-HDL-C 87 MG/DL; POTASSIUM SERUM 3.7 MEQ/L (3.5-5.1); SODIUM LEVEL 139 MEQ/L (136-145); TOTAL 25(OH) VITAMIN D 20.5 NG/ML (30.0-100.0); TRIGLYCERIDES LEVEL 52 MG/DL (<150)
[2017-11-30 17:09] LABS: CREATININE, URINE 21.4 MG/DL; MALB URINE SIEMENS < 5.0 MG/L; MAU/CREAT RATIO 23.3 MCG/MG (0.0-30.0)
[2017-11-30 17:18] LABS: HIV 1&2 SCREEN CENTAUR NEGATIVE (NEGATIVE)
[2017-11-30 17:18] LABS: HEPATITIS C VIRUS ABY INDEX < 0.0 INDEX (<0.8)
== END ==
LOC: M LABDRAW1 12:37
DX: Z11.59 Encounter for screening for other viral diseases (principal); Z11.4 Encounter for screening for human immunodeficiency virus [HIV]; Z13.220 Encounter for screening for lipoid disorders; E55.9 Vitamin D deficiency, unspecified; E10.40 Type 1 diabetes mellitus with diabetic neuropathy, unspecified
CPT/HCPCS: 82306

== ENCOUNTER 2018-04-23 20:12 | Emergency (ER) | payer OTHER, MEDICARE ==
[2018-04-23 21:19] LABS: BEDSIDE GLUCOSE 28 MG/DL (70-105)
[2018-04-23 21:20] LABS: BEDSIDE GLUCOSE 248 MG/DL (70-105)
[2018-04-23 21:49] LABS: BEDSIDE GLUCOSE 231 MG/DL (70-105)
== END 2018-04-23 22:10 | disposition home or self-care (01) ==
LOC: M ED 20:12
DX: E11.649 Type 2 diabetes mellitus with hypoglycemia without coma (principal); F33.9 Major depressive disorder, recurrent, unspecified; Z79.4 Long term (current) use of insulin
CPT/HCPCS: 99284

== ENCOUNTER → 2018-10-12 | Outpatient (REF) | payer MEDICARE ==
[~2018-10-12] MED LIST changes: +BUSP10TA PO; +LORA0.5T11 PO; +TRAZ-160 PO; -TRAZ50TA11 PO
== END ==
LOC: M SFHCWAGY 13:50
PROVIDERS: ATTEND Nurse Practitioner Family
DX: Z12.4 Encounter for screening for malignant neoplasm of cervix (principal); R87.5 Abnormal microbiological findings in specimens from female genital organs

== ENCOUNTER → 2018-10-12 | Outpatient (CLI) | payer MEDICARE ==
--- NOTE | 2018-10-12 16:18 | REPMRS ---
Patient History The patient states she had a clinical breast exam in 09/2018. Patient is postmenopausal. Family history of breast cancer at age 50 or over in maternal grandmother. No Hormone Replacement Therapy Digital Woman Screen Mammo: October 12, 2018 - Exam #: [id number] Bilateral CC and MLO view(s) were taken. Technologist: Ashley Lux, Technologist Prior study comparison: January 10, 2015, digital woman screen mammo performed at [facility]. November 29, 2013, digital woman screen mammo performed at [facility]. July 07, 2012, bilateral bilat screen digital mammo, performed at [facility]. FINDINGS: The breast tissue is heterogeneously dense. This may lower the sensitivity of mammography. There is a moderate amount of heterogeneously dense fibroglandular tissue which is fairly symmetric. There is no interval development of dominant mass, architectural distortion, or clustered microcalcification typical of malignancy. There has been no change in the appearance of the mammogram from the prior studies. 3-D tomosynthesis shows no additional findings. Assessment: BI-RADS/ACR category 1 mammogram. Negative Mammogram. Recommendation Routine screening mammogram of both breasts in 1 year (for women over age 40). This patient's Lifetime Breast Cancer RIsk is estimated at 13.8 %. This mammogram was interpreted with the aid of an FDA-approved computer-aided dectection system. Electronically Signed By: Nikolai Stanton MD 10/12/18 [id number]
== END ==
LOC: M WHC 13:01
PROVIDERS: ATTEND Family Medicine
DX: Z12.31 Encounter for screening mammogram for malignant neoplasm of breast (principal); Z78.0 Asymptomatic menopausal state; Z80.3 Family history of malignant neoplasm of breast

== ENCOUNTER 2019-06-01 18:15 | Emergency (ER) | payer MEDICARE ==
[~2019-06-01] VITALS: Ht 162.6 cm; Wt 73.2 kg
[2019-06-01 18:15] VITALS: BP 126/61
[~2019-06-01 18:15] MED LIST changes: -DULO30CA PO; +DULO30CA9 PO; -TRAZ-160 PO; +TRAZ-252 PO
[2019-06-01] MEDS ORDERED: BUSP5TA PO (18:24)
[2019-06-01] MEDS ORDERED: NS 1,000 ML IV ONE (19:30)
== END 2019-06-01 20:16 | disposition left against medical advice (07) ==
LOC: M ED 18:15
DX: E11.65 Type 2 diabetes mellitus with hyperglycemia (principal); R11.2 Nausea with vomiting, unspecified; F41.9 Anxiety disorder, unspecified; Z53.21 Procedure and treatment not carried out due to patient leaving prior to being seen by health care provider; Z79.82 Long term (current) use of aspirin; Z79.4 Long term (current) use of insulin; Z79.899 Other long term (current) drug therapy

== ENCOUNTER → 2019-06-14 | Outpatient (REF) | payer MEDICARE ==
[~2019-06-14] MED LIST changes: +BUSP5TA PO
[2019-06-14 16:36] LABS: CREATININE, URINE < 13.0 MG/DL; MALB URINE SIEMENS < 5.0 MG/L
== END ==
LOC: M LAB REF 15:30
PROVIDERS: ATTEND Internal Medicine Endocrinology, Diabetes & Metabolism
DX: E10.649 Type 1 diabetes mellitus with hypoglycemia without coma (principal)
CPT/HCPCS: 82043; G0463

== ENCOUNTER → 2019-10-11 | Outpatient (REF) | payer MEDICARE ==
[~2019-10-11] MED LIST changes: +FLUO20CA20 PO; -FLUO20CA8 PO; -LORA0.5T11 PO; +LORA0.5T5 PO
== END ==
LOC: M SFHCPLAZ 15:14
PROVIDERS: ATTEND Family Medicine
DX: M85.80 Other specified disorders of bone density and structure, unspecified site (principal)

== ENCOUNTER → 2020-01-05 | Outpatient (CLI) | payer MEDICARE ==
--- NOTE | 2020-01-05 14:58 | REPMRS ---
Patient History The patient states she had a clinical breast exam in December 2019. Family history of breast cancer at age 50 or over in maternal grandmother. No Hormone Replacement Therapy 3D TOMOSYNTHESIS WAS PERFORMED. The Lynda Emery lifetime risk for breast cancer is 13.4%. YOHANNES Vega Digital Woman Screen Mammo: January 05, 2020 - Exam #: [id number] Bilateral CC and MLO view(s) were taken. Technologist: Ame Sin, Technologist Prior study comparison: October 12, 2018, bilateral digital woman screen mammo performed at [facility]. January 10, 2015, digital woman screen mammo performed at [facility]. FINDINGS: The breast tissue is heterogeneously dense. This may lower the sensitivity of mammography. There has been no change in the appearance of the mammogram from the prior studies. There is a moderate amount of residual fibroglandular tissue which is fairly symmetric. There is no interval development of dominant mass, areas of architectural distortion, or clustered microcalcification typical of malignancy. Assessment: BI-RADS/ACR category 1 mammogram. Negative Mammogram. Recommendation Routine screening mammogram in 1 year (for women over age 40). This mammogram was interpreted with the aid of an FDA-approved computer-aided dectection system. Electronically Signed By: Bradley Serra MD 01/05/20 [id number]
== END ==
LOC: M WHC 13:05
PROVIDERS: ATTEND Student in an Organized Health Care Education/Training Program
DX: Z12.31 Encounter for screening mammogram for malignant neoplasm of breast (principal); M85.88 Other specified disorders of bone density and structure, other site; Z80.3 Family history of malignant neoplasm of breast

== ENCOUNTER → 2020-08-31 | Outpatient (REF) | payer MEDICARE ==
[~2020-08-31] MED LIST changes: -ASPI81TA85 PO; +ASPI81TA86 PO
[2020-08-31 17:37] LABS: CREATININE, URINE 17.5 MG/DL; MALB URINE SIEMENS < 5.0 MG/L; MAU/CREAT RATIO 28.5 MCG/MG (0.0-30.0)
== END ==
LOC: M LAB REF 16:43
PROVIDERS: ATTEND Internal Medicine Endocrinology, Diabetes & Metabolism
DX: E10.649 Type 1 diabetes mellitus with hypoglycemia without coma (principal)

== ENCOUNTER → 2020-10-31 | Outpatient (CLI) | payer MEDICARE ==
--- NOTE | 2020-10-31 12:58 | REP ---
INDICATION: PAIN COMPARISON: None. TECHNIQUE: There are four views. FINDINGS: There is no fracture or dislocation. Mineralization and joint spaces are normal. There are no calcifications or foreign bodies. IMPRESSION: Essentially negative left wrist. . <Electronically signed by Bradley Murrell > 10/31/20 [id number]
== END ==
LOC: M WUC 11:47
PROVIDERS: ATTEND Physician Assistant
DX: M25.532 Pain in left wrist (principal)

== ENCOUNTER → 2020-11-27 | Outpatient (REF) | payer MEDICARE ==
[2020-11-27 15:01] LABS: BASO % 0.3 % (0.0-1.0); EOS # 0.1 10^3/uL (0.0-0.5); EOS % 1.3 % (0.0-3.0); HEMATOCRIT 46.8 % (36.0-47.0); HEMOGLOBIN 15.7 g/dl (12.0-15.5); LYMPH # 1.7 10^3/uL (1.5-5.0); LYMPH % 27.8 % (24.0-44.0); MEAN CORPUSCULAR HEMOGLOBIN 32.2 pg (27.0-33.0); MEAN CORPUSCULAR HGB CONC 33.5 g/dl (32.0-36.5); MEAN CORPUSCULAR VOLUME 95.9 fl (80.0-96.0); MONO # 0.6 10^3/uL (0.0-0.8); MONO % 10.1 % (2.0-8.0); NEUTROPHILS # 3.6 10^3/uL (1.5-8.5); NEUTROPHILS % 60.2 % (36.0-66.0); PLATELET COUNT, AUTOMATED 328 10^3/uL (150-450); RED BLOOD COUNT 4.88 10^6/uL (4.00-5.40)
[2020-11-27 15:31] LABS: BLOOD UREA NITROGEN 7 MG/DL (7-18); CARBON DIOXIDE LEVEL 33 MEQ/L (21-32); CHLORIDE LEVEL 102 MEQ/L (98-107); CREATININE FOR GFR 0.71 MG/DL (0.55-1.30); GLOMERULAR FILTRATION RATE > 60.0 (>45); GLUCOSE, FASTING 212 MG/DL (70-100); POTASSIUM SERUM 5.1 MEQ/L (3.5-5.1); SODIUM LEVEL 139 MEQ/L (136-145)
== END ==
LOC: M PLALAB 14:45
PROVIDERS: ATTEND Student in an Organized Health Care Education/Training Program
DX: G25.9 Extrapyramidal and movement disorder, unspecified (principal); T43.505A Adverse effect of unspecified antipsychotics and neuroleptics, initial encounter

== ENCOUNTER → 2021-01-08 | Outpatient (REF) | payer MEDICARE | LOC: M PLALAB 15:05 | PROVIDERS: ATTEND Student in an Organized Health Care Education/Training Program | DX: Z12.4 Encounter for screening for malignant neoplasm of cervix (principal); E83.52 Hypercalcemia; E10.9 Type 1 diabetes mellitus without complications; R87.618 Other abnormal cytological findings on specimens from cervix uteri | CPT/HCPCS: 87624; G0123 ==

== ENCOUNTER → 2021-01-08 | Outpatient (CLI) | payer MEDICARE ==
--- NOTE | 2021-01-08 17:45 | REPMRS ---
Patient History The patient states she had a clinical breast exam in December 2020. Family history of breast cancer at age 50 or over in maternal grandmother. No Hormone Replacement Therapy Tomosynthesis is performed. Volpara breast density is c. Tyrer-zick lifetime risk of breast cancer 13.0%. Patient states no breast complaints today. Patient has signed MRS History Sheet. Digital Woman Screen Mammo: January 08, 2021 - Exam #: [id number] Bilateral CC and MLO view(s) were taken. Technologist: Doreen Reed, Technologist Prior study comparison: January 05, 2020, bilateral digital woman screen mammo performed at [facility]. October 12, 2018, bilateral digital woman screen mammo performed at [facility]. FINDINGS: The breast tissue is heterogeneously dense. This may lower the sensitivity of mammography. There has been no change in the appearance of the mammogram from the prior studies. There is a moderate amount of residual fibroglandular tissue which is fairly symmetric. There is no interval development of dominant mass, areas of architectural distortion, or clustered microcalcification typical of malignancy. Assessment: BI-RADS/ACR category 1 mammogram. Negative Mammogram. Recommendation Routine screening mammogram in 1 year (for women over age 40). This mammogram was interpreted with the aid of an FDA-approved computer-aided dectection system. Electronically Signed By: Bradley Serra MD 01/08/21 [id number]
== END ==
LOC: M WHC 15:16
PROVIDERS: ATTEND Advanced Practice Midwife
DX: Z12.31 Encounter for screening mammogram for malignant neoplasm of breast (principal); Z80.3 Family history of malignant neoplasm of breast

== ENCOUNTER → 2021-01-29 | Outpatient (CLI) | payer MEDICARE ==
[2021-01-29 18:56] LABS: BLOOD UREA NITROGEN 9 MG/DL (7-18); CREATININE FOR GFR 0.69 MG/DL (0.55-1.30); GLOMERULAR FILTRATION RATE > 60.0 (>45); GLUCOSE, FASTING 175 MG/DL (70-100); SODIUM LEVEL 140 MEQ/L (136-145)
[2021-01-29 18:57] LABS: CALCIUM LEVEL 10.1 MG/DL (8.8-10.2); CARBON DIOXIDE LEVEL 28 MEQ/L (21-32); CHLORIDE LEVEL 103 MEQ/L (98-107); CHOLESTEROL LEVEL 212 MG/DL (<200); CHOLESTEROL RISK RATIO 1.981 (<5); HDL CHOLESTEROL 107 MG/DL (>40); LDL CHOLESTEROL 92 MG/DL (<100); NON-HDL-C 105 MG/DL; PHOSPHORUS LEVEL 2.9 MG/DL (2.5-4.9); POTASSIUM SERUM 3.7 MEQ/L (3.5-5.1); TOTAL PROTEIN 7.1 GM/DL (6.4-8.2); TRIGLYCERIDES LEVEL 67 MG/DL (<150)
[2021-01-29 19:02] LABS: PTH INTACT 28.2 PG/ML (18.5-88.0)
[2021-01-29 20:35] LABS: HEMOGLOBIN A1c 7.3 %
[2021-01-31 14:05] LABS: ALBUMIN 4.38 GM/DL (3.29-5.55); ALBUMIN % 61.7 % (55.8-66.1); ALPHA-1-GLOBULIN % 4.4 % (2.9-4.9); ALPHA-1-GLOBULINS 0.31 GM/DL (0.17-0.41); ALPHA-2-GLOBULINS 0.82 GM/DL (0.42-0.99); ALPHA-2-GLOBULINS % 11.5 % (7.1-11.8); BETA-1-GLOBULINS 0.38 GM/DL (0.28-0.60); BETA-1-GLOBULINS % 5.4 % (4.7-7.2); BETA-2-GLOBULINS 0.32 GM/DL (0.19-0.55); BETA-2-GLOBULINS % 4.5 % (3.2-6.5); GAMMA GLOBULIN % 12.5 % (11.1-18.8); GAMMA GLOBULINS 0.89 GM/DL (0.65-1.58)
== END ==
LOC: M PLALAB 14:29
PROVIDERS: ATTEND Student in an Organized Health Care Education/Training Program
DX: E83.52 Hypercalcemia (principal); E10.9 Type 1 diabetes mellitus without complications

== ENCOUNTER → 2021-04-24 | Outpatient (CLI) | payer MEDICARE ==
--- NOTE | 2021-04-27 10:21 | ECGEPIP ---
[facility] Test Date: 2021-04-24 Pat Name: CANDACE AGUILAR Department: Room: - Gender: Female Manager Web Application: ashley : 1960 Requested By: Sandra Hudson Order Number: [id number] Reading MD: Myron Dickinson Measurements Intervals [place] Rate: 84 P: 61 AR: 160 QRS: -4 QRSD: 78 T: 54 QT: 396 QTc: 467 Interpretive Statements Normal sinus rhythm, Within normal limits. No significant change compared with 07/09/2017. Electronically Signed on 04-27-2021 10:21:17 EDT by Myron Dickinson
== END ==
LOC: M EKG 16:08
PROVIDERS: ATTEND Psychiatry & Neurology Psychiatry
DX: Z51.81 Encounter for therapeutic drug level monitoring (principal); Z79.899 Other long term (current) drug therapy

== ENCOUNTER → 2021-10-18 | Outpatient (REF) | payer MEDICARE ==
[~2021-10-18] MED LIST changes: -CYMB60CA3 PO; +CYMB60CA4 PO; +FLUO-96 PO; -FLUO20CA20 PO
[2021-10-18 17:54] LABS: MALB URINE SIEMENS 15.5 MG/L; MAU/CREAT RATIO 9.6 MCG/MG (0.0-30.0)
== END ==
LOC: M LAB REF 16:44
PROVIDERS: ATTEND Nurse Practitioner Family
DX: E10.649 Type 1 diabetes mellitus with hypoglycemia without coma (principal)

== ENCOUNTER → 2022-01-22 | Outpatient (CLI) | payer MEDICARE | LOC: M WHC 11:28 | PROVIDERS: ATTEND Family Medicine | DX: Z12.31 Encounter for screening mammogram for malignant neoplasm of breast (principal); M85.88 Other specified disorders of bone density and structure, other site ==

== ENCOUNTER → 2022-01-22 | Outpatient (CLI) | payer MEDICARE ==
[2022-01-22 15:36] LABS: BASO % 0.6 % (0.0-1.0); EOS # 0.2 10^3/uL (0.0-0.5); EOS % 3.1 % (0.0-3.0); HEMOGLOBIN 15.5 g/dl (12.0-15.5); LYMPH % 18.2 % (24.0-44.0); MEAN CORPUSCULAR HEMOGLOBIN 32.4 pg (27.0-33.0); MEAN CORPUSCULAR HGB CONC 33.7 g/dl (32.0-36.5); MONO # 0.4 10^3/uL (0.0-0.8); MONO % 8.1 % (2.0-8.0); NEUTROPHILS # 3.8 10^3/uL (1.5-8.5); NEUTROPHILS % 69.8 % (36.0-66.0); PLATELET COUNT, AUTOMATED 264 10^3/uL (150-450); RED BLOOD COUNT 4.79 10^6/uL (4.00-5.40); WHITE BLOOD COUNT 5.4 10^3/uL (4.0-10.0)
[2022-01-22 16:11] LABS: HEMOGLOBIN A1c 7.9 %
[2022-01-22 16:15] LABS: ALT/SGPT 100 U/L (12-78); BILIRUBIN,TOTAL 0.6 MG/DL (0.2-1.0); BLOOD UREA NITROGEN 12 MG/DL (7-18); CALCIUM LEVEL 10.2 MG/DL (8.8-10.2); CARBON DIOXIDE LEVEL 30 MEQ/L (21-32); CHLORIDE LEVEL 105 MEQ/L (98-107); CHOLESTEROL LEVEL 166 MG/DL (<200); CREATININE FOR GFR 0.68 MG/DL (0.55-1.30); FREE T4 0.78 NG/DL (0.76-1.46); GLOMERULAR FILTRATION RATE > 60.0 (>45); GLUCOSE, FASTING 180 MG/DL (70-100); HDL CHOLESTEROL 105 MG/DL (>40); LDL CHOLESTEROL 46 MG/DL (<100); NON-HDL-C 61 MG/DL; POTASSIUM SERUM 5.4 MEQ/L (3.5-5.1); SODIUM LEVEL 140 MEQ/L (136-145); TOTAL PROTEIN 7.1 GM/DL (6.4-8.2); TRIGLYCERIDES LEVEL 75 MG/DL (<150)
[2022-01-22 16:20] LABS: CREATININE, URINE 35.7 MG/DL; MALB URINE SIEMENS 8.7 MG/L; MAU/CREAT RATIO 24.3 MCG/MG (0.0-30.0)
[2022-01-22 16:27] LABS: PTH INTACT 52.9 PG/ML (18.5-88.0); TOTAL 25(OH) VITAMIN D 43.2 NG/ML (30.0-100.0); VITAMIN B12 LEVEL 709 PG/ML (247-911)
== END ==
LOC: M PLALAB 12:33
PROVIDERS: ATTEND Family Medicine
DX: E10.40 Type 1 diabetes mellitus with diabetic neuropathy, unspecified (principal); E55.9 Vitamin D deficiency, unspecified; E78.00 Pure hypercholesterolemia, unspecified

== ENCOUNTER → 2022-02-27 | Outpatient (CLI) | payer MEDICARE | LOC: M RAD 11:11 | PROVIDERS: ATTEND Family Medicine | DX: K76.0 Fatty (change of) liver, not elsewhere classified (principal) ==

== ENCOUNTER → 2022-04-03 | Outpatient (REF) | payer MEDICARE | LOC: EEVIPCON 17:00 → M SFHCPLAZ 17:00 | PROVIDERS: ATTEND Family Medicine | DX: L02.811 Cutaneous abscess of head [any part, except face] (principal); L98.499 Non-pressure chronic ulcer of skin of other sites with unspecified severity ==

== ENCOUNTER → 2022-11-27 | Outpatient (CLI) | payer MEDICARE ==
[2022-11-27 13:23] LABS: BASO % 0.6 % (0.0-1.0); EOS # 0.1 10^3/uL (0.0-0.5); EOS % 1.3 % (0.0-3.0); HEMATOCRIT 46.2 % (36.0-47.0); HEMOGLOBIN 14.9 g/dl (12.0-15.5); LYMPH # 0.9 10^3/uL (1.5-5.0); MEAN CORPUSCULAR HEMOGLOBIN 32.3 pg (27.0-33.0); MEAN CORPUSCULAR HGB CONC 32.3 g/dl (32.0-36.5); MEAN CORPUSCULAR VOLUME 100.2 fl (80.0-96.0); MONO # 0.5 10^3/uL (0.0-0.8); MONO % 10.4 % (2.0-8.0); NEUTROPHILS # 3.2 10^3/uL (1.5-8.5); NEUTROPHILS % 68.5 % (36.0-66.0); PLATELET COUNT, AUTOMATED 273 10^3/uL (150-450); RED BLOOD COUNT 4.61 10^6/uL (4.00-5.40); WHITE BLOOD COUNT 4.7 10^3/uL (4.0-10.0)
[2022-11-27 13:27] LABS: FERRITIN 55.6 NG/ML (7.3-270.7)
[2022-11-27 13:29] LABS: TOTAL 25(OH) VITAMIN D 25.6 NG/ML (20.0-100.0)
[2022-11-27 13:30] LABS: ALBUMIN 4.1 G/DL (3.2-5.2); ALKALINE PHOSPHATASE 133 U/L (46-116); ALT/SGPT 98 U/L (7.0-40); AST/SGOT 63 U/L (<34); BILIRUBIN,TOTAL 0.7 MG/DL (0.3-1.2); BLOOD UREA NITROGEN 10 MG/DL (9-23); CALCIUM LEVEL 9.7 MG/DL (8.3-10.6); CARBON DIOXIDE LEVEL 34 MMOL/L (20-31); CHLORIDE LEVEL 103 MMOL/L (98-107); CREATININE FOR GFR 0.57 MG/DL (0.55-1.30); GLOMERULAR FILTRATION RATE > 60.0 (>45); GLUCOSE, FASTING 119 MG/DL (74-106); POTASSIUM SERUM 4.4 MMOL/L (3.5-5.1); SODIUM LEVEL 140 MMOL/L (136-145); TOTAL PROTEIN 6.7 G/DL (5.7-8.2)
[2022-11-27 14:27] LABS: HEMOGLOBIN A1c 7.8 % (4.0-6.0)
[2022-11-27 16:50] LABS: PTH INTACT 97.6 PG/ML (18.5-88.0)
[2022-11-28 19:08] LABS: IMMUNOTYPING SERUM IGA SO 168 mg/dL (87-352); IMMUNOTYPING SERUM IGM SO 37 mg/dL (26-217)
== END ==
LOC: M PLALAB 10:15
PROVIDERS: ATTEND Family Medicine
DX: E10.40 Type 1 diabetes mellitus with diabetic neuropathy, unspecified (principal); K76.0 Fatty (change of) liver, not elsewhere classified; E55.9 Vitamin D deficiency, unspecified; D75.89 Other specified diseases of blood and blood-forming organs

== ENCOUNTER → 2022-11-27 | Outpatient (CLI) | payer MEDICARE | LOC: M WHC 10:00 | PROVIDERS: ATTEND Family Medicine | DX: Z12.39 Encounter for other screening for malignant neoplasm of breast (principal) ==

== ENCOUNTER 2023-07-17 16:11 | Inpatient (IN) | payer MEDICARE ==
[2023-07-17] VITALS (21 sets, daily range): BP systolic 71–103; BP diastolic 38–54; TEMP 94.6–100; O2SAT 100
[~2023-07-17] VITALS: Ht 162.6 cm; Wt 69.2 kg
[2023-07-17] MEDS: PANTOPRAZOLE 40MG VIAL IV SCH (09:00)
[2023-07-17] MEDS ORDERED: NS 1,000 ML IV ONE (16:20)
[2023-07-17] MEDS ORDERED: SODIUM BICARBONATE 8.4% INJ 50ML SYRINGE As Ordered ONE (16:32)
[2023-07-17] MEDS ORDERED: NOREPINEPHRINE 4MG IN D5 250ML 4 MG in IV 1 EA IV SCH ×2 (16:40)
[2023-07-17] MEDS ORDERED: ROCURONIUM BROMIDE 50MG/5ML VIAL IV ONE (16:45)
[2023-07-17] MEDS ORDERED: MIDAZOLAM INJ 2MG/2ML VIAL IV ONE (16:45)
[2023-07-17] MEDS: MIDAZOLAM 100MG/100ML-0.9%NACL 100 MG in IV 1 EA IV SCH ×2 (16:45→21:16)
[2023-07-17] MEDS ORDERED: ETOMIDATE INJ 20MG/10ML VIAL IV ONE (16:45)
[2023-07-17 16:58] LABS: ABG BASE EXCESS -25.5 (-2.0-2.0); ABG O2 SATURATION 99.5 % (95.0-99.0); ABG PARTIAL PRESSURE CO2 29.2 mmHg (35.0-45.0); ABG PARTIAL PRESSURE O2 264.8 mmHg (75.0-100.0); ABG TOTAL CO2 6.9 MMOL/L (23.0-31.0)
[2023-07-17 17:00] LABS: ABG pH (ARTERIAL) 6.931 UNITS (7.350-7.450)
[2023-07-17] MEDS ORDERED: HumuLIN R (REGULAR) INSULIN (NovoLIN R) **100U/ML** PER UNIT IV ONE (17:00)
[2023-07-17] MEDS ORDERED: INSULIN REGULAR IN 0.9 % NACL 100 UNIT in IV 1 EA IV SCH ×2 (17:00)
[2023-07-17 17:08] LABS: BASO # 0.2 10^3/uL (0.0-0.2); BASO % 0.6 % (0.0-1.0); EOS % 0.1 % (0.0-3.0); HEMATOCRIT 49.3 % (36.0-47.0); HEMOGLOBIN 14.9 g/dl (12.0-15.5); LYMPH # 3.1 10^3/uL (1.5-5.0); LYMPH % 10.8 % (24.0-44.0); MEAN CORPUSCULAR HEMOGLOBIN 33.9 pg (27.0-33.0); MEAN CORPUSCULAR HGB CONC 30.2 g/dl (32.0-36.5); MONO % 6.6 % (2.0-8.0); NEUTROPHILS # 22.5 10^3/uL (1.5-8.5); NEUTROPHILS % 77.8 % (36.0-66.0); PLATELET COUNT, AUTOMATED 346 10^3/uL (150-450); WHITE BLOOD COUNT 28.9 10^3/uL (4.0-10.0)
[2023-07-17 17:20] LABS: MONO # 1.9 10^3/uL (0.0-0.8)
[2023-07-17 17:36] LABS: AMPHETAMINES LEVEL URINE NEGATIVE (NEGATIVE); BARBITURATES URINE NEGATIVE (NEGATIVE); BENZODIAZEPINES URINE NEGATIVE (NEGATIVE); CANNABINOIDS URINE NEGATIVE (NEGATIVE); COCAINE METABOLITE URINE NEGATIVE (NEGATIVE); METHADONE URINE NEGATIVE (NEGATIVE); OPIATES URINE NEGATIVE (NEGATIVE); PHENCYCLIDINE URINE NEGATIVE (NEGATIVE)
[2023-07-17 17:40] LABS: SALICYLATE LEVEL < 3.0 MG/DL (<30)
[2023-07-17] MEDS ORDERED: INSULIN IV RATE CHANGE DOCUMENTATION ML/HR XX SCH (18:00)
[2023-07-17] MEDS ORDERED: propofoL 1,000 MG in IV 1 EA IV SCH (18:00)
[2023-07-17 18:08] LABS: ACETONE/KETONE > 4.50 MMOL/L (0.02-0.27); CPK CREATINE PHOSPHOKINASE 326 U/L (34-145)
[2023-07-17 18:10] LABS: ALBUMIN 3.8 G/DL (3.2-5.2); ALKALINE PHOSPHATASE 162 U/L (46-116); ALT/SGPT 40 U/L (7.0-40); AST/SGOT 45 U/L (<34); BILIRUBIN,DIRECT < 0.1 MG/DL (<0.4); BILIRUBIN,TOTAL 0.2 MG/DL (0.3-1.2); BLOOD UREA NITROGEN 50 MG/DL (9-23); CALCIUM LEVEL 9.9 MG/DL (8.3-10.6); CARBON DIOXIDE LEVEL < 10.0 MMOL/L (20-31); CHLORIDE LEVEL 97 MMOL/L (98-107); CK-MB VALUE MASS 5.3 NG/ML (<3.6); GLOMERULAR FILTRATION RATE 25.3 (>45); MB/CK RELATIVE INDEX 1.62 (< OR =4); POTASSIUM SERUM 5.5 MMOL/L (3.5-5.1); SODIUM LEVEL 134 MMOL/L (136-145); THYROID STIMULATING HORMONE 1.196 uIU/ML (0.55-4.78); TOTAL PROTEIN 6.6 G/DL (5.7-8.2)
[2023-07-17] MEDS: LR 1,000 ML IV SCH ×2 (18:31→22:36)
[2023-07-17 18:44] LABS: GLUCOSE, FASTING 1065 MG/DL (74-106)
[2023-07-17] MEDS: INSULIN REGULAR IN 0.9 % NACL 100 UNIT in IV 1 EA IV SCH ×2 (18:47)
[2023-07-17] MEDS: INSULIN IV RATE CHANGE DOCUMENTATION ML/HR XX SCH (20:00)
[2023-07-17] MEDS ORDERED: HumuLIN R (REGULAR) INSULIN (NovoLIN R) **100U/ML** PER UNIT SC ONE (21:00)
[2023-07-17] MEDS ORDERED: HEPARIN SOD (PORCINE) 5000UNITS/ML 1ML VIAL/SYRINGE SQ SCH (21:00)
[2023-07-17] MEDS: HEPARIN SOD (PORCINE) 5000UNITS/ML 1ML VIAL/SYRINGE SC SCH (21:07)
[2023-07-17 21:46] LABS: BLOOD UREA NITROGEN 48 MG/DL (9-23); CALCIUM LEVEL 8.3 MG/DL (8.3-10.6); CARBON DIOXIDE LEVEL < 10.0 MMOL/L (20-31); CHLORIDE LEVEL 110 MMOL/L (98-107); CREATININE FOR GFR 1.87 MG/DL (0.55-1.30); GLOMERULAR FILTRATION RATE 28.9 (>45); GLUCOSE, FASTING 723 MG/DL (74-106); MAGNESIUM LEVEL 2.6 MG/DL (1.8-2.4); PHOSPHORUS LEVEL 4.9 MG/DL (2.4-5.1); POTASSIUM SERUM 4.7 MMOL/L (3.5-5.1); SODIUM LEVEL 145 MMOL/L (136-145)
[2023-07-17 21:55] LABS: ABG BASE EXCESS -22.1 (-2.0-2.0); ABG O2 SATURATION 98.8 % (95.0-99.0); ABG PARTIAL PRESSURE CO2 20.3 mmHg (35.0-45.0); ABG PARTIAL PRESSURE O2 136.4 mmHg (75.0-100.0); ABG STANDARD HCO3 8.8 MMOL/L. (22.0-26.0); ABG TOTAL CO2 6.6 MMOL/L (23.0-31.0); ABG pH (ARTERIAL) 7.089 UNITS (7.350-7.450)
[2023-07-17] MEDS ORDERED: AUST9TAB PO (22:06)
[2023-07-17] MEDS ORDERED: MED REC COMMENT (22:07)
[2023-07-17] MEDS ORDERED: HOME MED LIST COMPLETE! XX SCH (22:10)
[2023-07-17] MEDS ORDERED: MIDAZOLAM INJ 2MG/2ML VIAL IV PRN (22:30)
[2023-07-17] MEDS ORDERED: SODIUM BICARBONATE 150 MEQ in STERILE WATER LITER BAG 1,000 ML IV SCH (23:00)
[2023-07-18] VITALS (101 sets, daily range): BP systolic 83–126; BP diastolic 46–72; TEMP 99.7–100.2; O2SAT 91–100
[2023-07-18] MEDS ORDERED: HumuLIN R (REGULAR) INSULIN (NovoLIN R) **100U/ML** PER UNIT SC ONE (00:15)
[2023-07-18 00:23] LABS: VENOUS BASE EXCESS -18.5 (-2.0-2.0); VENOUS HCO3 8.6 MMOL/L (23.0-27.0); VENOUS PARTIAL PRESSURE CO2 24.9 mmHg (38.0-50.0); VENOUS PARTIAL PRESSURE O2 150.8 mmHg (30.0-50.0); VENOUS PH 7.156 UNITS (7.330-7.430); VENOUS STANDARD HCO3 11.1 MMOL/L; VENOUS TOTAL CO2 9.4 MMOL/L (24.0-28.0)
[2023-07-18] MEDS ORDERED: HumuLIN R (REGULAR) INSULIN (NovoLIN R) **100U/ML** PER UNIT IV STA (00:36)
[2023-07-18] MEDS: INSULIN REGULAR IN 0.9 % NACL 100 UNIT in IV 1 EA IV SCH ×2 (00:47)
[2023-07-18] MEDS: NOREPINEPHRINE 4MG IN D5 250ML 4 MG in IV 1 EA IV SCH ×4 (00:50→13:58)
[2023-07-18 00:58] LABS: BLOOD UREA NITROGEN 49 MG/DL (9-23); CALCIUM LEVEL 8.4 MG/DL (8.3-10.6); CARBON DIOXIDE LEVEL < 10.0 MMOL/L (20-31); CHLORIDE LEVEL 111 MMOL/L (98-107); CREATININE FOR GFR 1.84 MG/DL (0.55-1.30); GLOMERULAR FILTRATION RATE 29.5 (>45); GLUCOSE, FASTING 603 MG/DL (74-106); PHOSPHORUS LEVEL 2.1 MG/DL (2.4-5.1); POTASSIUM SERUM 3.8 MMOL/L (3.5-5.1); SODIUM LEVEL 145 MMOL/L (136-145)
[2023-07-18 02:50] LABS: BLOOD UREA NITROGEN 49 MG/DL (9-23); CALCIUM LEVEL 8.5 MG/DL (8.3-10.6); CARBON DIOXIDE LEVEL < 10.0 MMOL/L (20-31); CHLORIDE LEVEL 112 MMOL/L (98-107); CREATININE FOR GFR 1.84 MG/DL (0.55-1.30); GLOMERULAR FILTRATION RATE 29.5 (>45); GLUCOSE, FASTING 518 MG/DL (74-106); POTASSIUM SERUM 3.6 MMOL/L (3.5-5.1); SODIUM LEVEL 146 MMOL/L (136-145)
[2023-07-18] MEDS: INSULIN IV RATE CHANGE DOCUMENTATION ML/HR XX SCH ×9 (04:08→16:00)
[2023-07-18] MEDS ORDERED: LR 1,000 ML IV SCH (04:45)
[2023-07-18] MEDS: HEPARIN SOD (PORCINE) 5000UNITS/ML 1ML VIAL/SYRINGE SC SCH ×3 (05:03→21:04)
[2023-07-18 05:26] LABS: ABG BASE EXCESS -2.6 (-2.0-2.0); ABG HCO3 19.4 MMOL/L (22.0-26.0); ABG O2 SATURATION 98.9 % (95.0-99.0); ABG PARTIAL PRESSURE CO2 26.2 mmHg (35.0-45.0); ABG PARTIAL PRESSURE O2 129.7 mmHg (75.0-100.0); ABG STANDARD HCO3 22.4 MMOL/L. (22.0-26.0); ABG TOTAL CO2 20.2 MMOL/L (23.0-31.0); ABG pH (ARTERIAL) 7.487 UNITS (7.350-7.450)
[2023-07-18 05:44] LABS: CALCIUM LEVEL 8.8 MG/DL (8.3-10.6); CREATININE FOR GFR 1.78 MG/DL (0.55-1.30); GLOMERULAR FILTRATION RATE 30.6 (>45); MAGNESIUM LEVEL 1.8 MG/DL (1.8-2.4); POTASSIUM SERUM 3.2 MMOL/L (3.5-5.1)
[2023-07-18] MEDS: KCL 10MEQ/100ML SWI (KRUN) 10 MEQ in IV 1 EA IV SCH ×3 (06:25→08:29)
[2023-07-18] MEDS: KCL 40MEQ IN D5/0.45NS 1000ML 1,000 ML IV SCH ×2 (06:45→12:55)
[2023-07-18] MEDS ORDERED: POTASSIUM PHOSPHATE INJ 20 MMOL in D5W 250 ML IV ONE (07:30)
[2023-07-18] MEDS ORDERED: LR 1,000 ML IV ONE (09:00)
[2023-07-18 09:02] LABS: BASO % 0.1 % (0.0-1.0); HEMATOCRIT 36.1 % (36.0-47.0); HEMOGLOBIN 12.6 g/dl (12.0-15.5); LYMPH # 0.5 10^3/uL (1.5-5.0); LYMPH % 2.8 % (24.0-44.0); MEAN CORPUSCULAR HGB CONC 34.9 g/dl (32.0-36.5); MEAN CORPUSCULAR VOLUME 94.5 fl (80.0-96.0); MONO % 9.6 % (2.0-8.0); NEUTROPHILS # 15.8 10^3/uL (1.5-8.5); NEUTROPHILS % 86.1 % (36.0-66.0); PLATELET COUNT, AUTOMATED 229 10^3/uL (150-450); RED BLOOD COUNT 3.82 10^6/uL (4.00-5.40); WHITE BLOOD COUNT 18.4 10^3/uL (4.0-10.0)
[2023-07-18] MEDS: PANTOPRAZOLE 40MG VIAL IV SCH (09:13)
[2023-07-18 09:28] LABS: CALCIUM LEVEL 8.5 MG/DL (8.3-10.6); CREATININE FOR GFR 1.69 MG/DL (0.55-1.30); GLOMERULAR FILTRATION RATE 32.5 (>45); MAGNESIUM LEVEL 1.7 MG/DL (1.8-2.4); POTASSIUM SERUM 3.6 MMOL/L (3.5-5.1)
[2023-07-18 09:43] LABS: PHOSPHORUS LEVEL 0.6 MG/DL (2.4-5.1)
[2023-07-18] MEDS ORDERED: dexmedeTOMidine 200 MCG in IV 1 EA IV SCH (09:50)
[2023-07-18] MEDS ORDERED: MAG SULF 1GM/100ML (MAG RUN) 1 GM in IV 1 EA IV ONE ×2 (10:00→21:05)
[2023-07-18 10:43] LABS: MONO # 1.8 10^3/uL (0.0-0.8)
[2023-07-18] MEDS ORDERED: POTASSIUM PHOSPHATE INJ 30 MMOL in D5W 500 ML IV ONE (11:00)
[2023-07-18 14:05] LABS: CALCIUM LEVEL 8.3 MG/DL (8.3-10.6); CREATININE FOR GFR 1.52 MG/DL (0.55-1.30); GLOMERULAR FILTRATION RATE 36.8 (>45); MAGNESIUM LEVEL 1.9 MG/DL (1.8-2.4); PHOSPHORUS LEVEL 2.6 MG/DL (2.4-5.1); POTASSIUM SERUM 4.6 MMOL/L (3.5-5.1)
[2023-07-18] MEDS ORDERED: GLUCAGON INJ 1MG VIAL SC PRN (14:15)
[2023-07-18] MEDS ORDERED: GLUCOSE 4GM CHEW TABLET PO PRN (14:15)
[2023-07-18] MEDS: INSULIN LISPRO (NovoLOG) PER UNIT SC SCH ×2 (14:48→17:01)
[2023-07-18] MEDS: LEVEMIR (INSULIN DETEMIR) 1 UNITS/0.01ML SC SCH ×2 (14:53→21:04)
[2023-07-18] MEDS ORDERED: D5W/LR 1,000 ML IV SCH (15:00)
[2023-07-18 16:35] LABS: CALCIUM LEVEL 8.2 MG/DL (8.3-10.6); CREATININE FOR GFR 1.48 MG/DL (0.55-1.30); GLOMERULAR FILTRATION RATE 37.9 (>45); MAGNESIUM LEVEL 1.8 MG/DL (1.8-2.4); PHOSPHORUS LEVEL 3.5 MG/DL (2.4-5.1); POTASSIUM SERUM 5.2 MMOL/L (3.5-5.1)
[2023-07-18] MEDS: LR 1,000 ML IV SCH ×2 (17:29→23:37)
[2023-07-18 20:26] LABS: CALCIUM LEVEL 8.4 MG/DL (8.3-10.6); CREATININE FOR GFR 1.39 MG/DL (0.55-1.30); GLOMERULAR FILTRATION RATE 40.8 (>45); MAGNESIUM LEVEL 1.7 MG/DL (1.8-2.4); PHOSPHORUS LEVEL 2.5 MG/DL (2.4-5.1); POTASSIUM SERUM 4.3 MMOL/L (3.5-5.1)
[2023-07-18] MEDS ORDERED: propofoL 1,000 MG in IV 1 EA IV SCH (23:30)
[2023-07-19] VITALS (87 sets, daily range): BP systolic 69–180; BP diastolic 51–99; TEMP 98.6–101.5; O2SAT 77–100
[2023-07-19 04:50] LABS: CALCIUM LEVEL 8.2 MG/DL (8.3-10.6); CREATININE FOR GFR 1.23 MG/DL (0.55-1.30); GLOMERULAR FILTRATION RATE 46.9 (>45); PHOSPHORUS LEVEL 2.8 MG/DL (2.4-5.1); POTASSIUM SERUM 4.1 MMOL/L (3.5-5.1)
[2023-07-19] MEDS: DEXTROSE 50% 50ML SYRINGE IV PRN ×2 (04:59→05:19)
[2023-07-19] MEDS ORDERED: fentaNYL CITRATE/NaCl 1,000 MCG in IV 1 EA IV SCH (05:25)
[2023-07-19] MEDS ORDERED: FENTANYL DRIP LOCK BOX KEY 1 EACH XX PRN (05:25)
[2023-07-19] MEDS: INSULIN LISPRO (NovoLOG) PER UNIT SC SCH ×5 (05:28→23:23)
[2023-07-19] MEDS: HEPARIN SOD (PORCINE) 5000UNITS/ML 1ML VIAL/SYRINGE SC SCH ×3 (05:28→21:53)
[2023-07-19] MEDS ORDERED: LR 1,000 ML IV SCH ×2 (08:00→20:00)
[2023-07-19] MEDS: AUSTEDO 6 MG PO SCH ×2 (09:00→20:53)
[2023-07-19] MEDS ORDERED: IPRATROPIUM 0.5MG/ALBUTEROL 2.5MG INH SOL UD 3ML (DUONEB) NEB PRN (09:25)
[2023-07-19] MEDS: LEVEMIR (INSULIN DETEMIR) 1 UNITS/0.01ML SC SCH ×2 (10:03→20:48)
[2023-07-19] MEDS: PANTOPRAZOLE 40MG VIAL IV SCH (10:03)
[2023-07-19] MEDS: D10W/0.45% SODIUM CHLORIDE 1,000 ML IV SCH ×2 (10:24→17:52)
[2023-07-19] MEDS: DULoxetine 30MG CAPSULE (CYMBALTA) PO SCH (11:13)
[2023-07-19] MEDS ORDERED: FUROSEMIDE 20MG/2ML VIAL As Ordered ONE (13:10)
[2023-07-19] MEDS ORDERED: FUROSEMIDE 100MG/10ML VIAL IV ONE (13:30)
[2023-07-19] MEDS: NOREPINEPHRINE 4MG IN D5 250ML 4 MG in IV 1 EA IV SCH ×4 (15:16→21:53)
[2023-07-19 16:11] LABS: CALCIUM LEVEL 7.8 MG/DL (8.3-10.6); CREATININE FOR GFR 1.08 MG/DL (0.55-1.30); GLOMERULAR FILTRATION RATE 54.5 (>45); POTASSIUM SERUM 4.1 MMOL/L (3.5-5.1)
[2023-07-19] MEDS: PIPERACILLIN/TAZOBACTAM SOD 4.5 GM in D5W MINI-BAG PLUS 50 ML IV SCH ×2 (17:52→23:24)
[2023-07-19] MEDS: HYDROMORPHONE HCL 0.5 MG/ 0.5 ML SYRINGE IV PRN (20:52)
[2023-07-20] VITALS (19 sets, daily range): BP systolic 87–122; BP diastolic 57–70; TEMP 98.7–100.8; O2SAT 90–97
[2023-07-20] MEDS: HYDROMORPHONE HCL 0.5 MG/ 0.5 ML SYRINGE IV PRN ×3 (00:34→09:21)
[2023-07-20] MEDS: D10W/0.45% SODIUM CHLORIDE 1,000 ML IV SCH ×2 (02:06→08:14)
[2023-07-20] MEDS: NOREPINEPHRINE 4MG IN D5 250ML 4 MG in IV 1 EA IV SCH ×4 (03:40→10:20)
[2023-07-20 04:58] LABS: HEMOGLOBIN 11.6 g/dl (12.0-15.5); MEAN CORPUSCULAR HEMOGLOBIN 32.8 pg (27.0-33.0); MEAN CORPUSCULAR HGB CONC 33.1 g/dl (32.0-36.5); MEAN CORPUSCULAR VOLUME 98.9 fl (80.0-96.0); PLATELET COUNT, AUTOMATED 107 10^3/uL (150-450); RED BLOOD COUNT 3.54 10^6/uL (4.00-5.40)
[2023-07-20] MEDS: HEPARIN SOD (PORCINE) 5000UNITS/ML 1ML VIAL/SYRINGE SC SCH ×3 (05:08→22:00)
[2023-07-20] MEDS: INSULIN LISPRO (NovoLOG) PER UNIT SC SCH ×2 (05:09→11:39)
[2023-07-20] MEDS: PIPERACILLIN/TAZOBACTAM SOD 4.5 GM in D5W MINI-BAG PLUS 50 ML IV SCH ×4 (05:14→23:50)
[2023-07-20 05:25] LABS: FOLATE 9.62 NG/ML (>5.4); TOTAL 25(OH) VITAMIN D 24.9 NG/ML (20.0-100.0)
[2023-07-20 05:30] LABS: ALBUMIN 2.5 G/DL (3.2-5.2); BILIRUBIN,TOTAL 1.3 MG/DL (0.3-1.2); CALCIUM LEVEL 8.1 MG/DL (8.3-10.6); CREATININE FOR GFR 1.13 MG/DL (0.55-1.30); GLOMERULAR FILTRATION RATE 51.6 (>45); PHOSPHORUS LEVEL 3.2 MG/DL (2.4-5.1); POTASSIUM SERUM 3.9 MMOL/L (3.5-5.1)
[2023-07-20 05:41] LABS: ATYPICAL LYMPH 2 % (0-5); LYMPHOCYTES 6 % (16-44); NEUTROPHILS 83 % (28-66); PLATELET ESTIMATE NORMAL (NORMAL)
[2023-07-20] MEDS: AUSTEDO 6 MG PO SCH ×2 (09:14→22:04)
[2023-07-20] MEDS: DULoxetine 30MG CAPSULE (CYMBALTA) PO SCH (09:14)
[2023-07-20] MEDS: LEVEMIR (INSULIN DETEMIR) 1 UNITS/0.01ML SC SCH (09:15)
[2023-07-20] MEDS: PANTOPRAZOLE 40MG VIAL IV SCH (09:17)
[2023-07-20] MEDS ORDERED: D10W 1,000 ML IV SCH (15:00)
[2023-07-20] MEDS ORDERED: GLUCAGON INJ 1MG VIAL SC PRN (16:00)
[2023-07-20] MEDS ORDERED: GLUCOSE 4GM CHEW TABLET PO PRN (16:00)
[2023-07-20] MEDS: DEXTROSE 50% 50ML SYRINGE IV PRN ×2 (17:06→17:50)
[2023-07-20] MEDS ORDERED: INSULIN LISPRO (NovoLOG) PER UNIT SC SCH ×2 (17:30→21:00)
[2023-07-20] MEDS ORDERED: DEXTROSE 50% 50ML SYRINGE IV STA (17:36)
[2023-07-20] MEDS ORDERED: dexAMETHasone 20MG/5ML VIAL IV ONE (18:00)
[2023-07-20] MEDS: D10W 1,000 ML IV SCH (19:53)
[2023-07-21] VITALS (8 sets, daily range): BP systolic 100–132; BP diastolic 56–75; TEMP 98–99.7; O2SAT 91–97
[2023-07-21] MEDS: HYDROMORPHONE HCL 0.5 MG/ 0.5 ML SYRINGE IV PRN (03:59)
[2023-07-21 04:21] LABS: BASO % 0.1 % (0.0-1.0); EOS # 0.1 10^3/uL (0.0-0.5); EOS % 1.1 % (0.0-3.0); HEMATOCRIT 33.1 % (36.0-47.0); HEMOGLOBIN 11.2 g/dl (12.0-15.5); LYMPH # 0.6 10^3/uL (1.5-5.0); LYMPH % 6.2 % (24.0-44.0); MEAN CORPUSCULAR HEMOGLOBIN 33.4 pg (27.0-33.0); MEAN CORPUSCULAR HGB CONC 33.8 g/dl (32.0-36.5); MEAN CORPUSCULAR VOLUME 98.8 fl (80.0-96.0); MONO # 0.6 10^3/uL (0.0-0.8); MONO % 5.9 % (2.0-8.0); NEUTROPHILS % 86.4 % (36.0-66.0); RED BLOOD COUNT 3.35 10^6/uL (4.00-5.40); WHITE BLOOD COUNT 10.4 10^3/uL (4.0-10.0)
[2023-07-21 04:45] LABS: ALBUMIN 2.4 G/DL (3.2-5.2); ALKALINE PHOSPHATASE 192 U/L (46-116); ALT/SGPT 247 U/L (7.0-40); AST/SGOT 469 U/L (<34); BILIRUBIN,TOTAL 1.7 MG/DL (0.3-1.2); BLOOD UREA NITROGEN 16 MG/DL (9-23); CALCIUM LEVEL 8.1 MG/DL (8.3-10.6); CARBON DIOXIDE LEVEL 27 MMOL/L (20-31); CHLORIDE LEVEL 107 MMOL/L (98-107); CREATININE FOR GFR 0.83 MG/DL (0.55-1.30); GLOMERULAR FILTRATION RATE > 60.0 (>45); GLUCOSE, FASTING 218 MG/DL (74-106); POTASSIUM SERUM 3.3 MMOL/L (3.5-5.1); SODIUM LEVEL 139 MMOL/L (136-145)
[2023-07-21 04:48] LABS: PLATELET COUNT, AUTOMATED 79 10^3/uL (150-450)
[2023-07-21] MEDS: HEPARIN SOD (PORCINE) 5000UNITS/ML 1ML VIAL/SYRINGE SC SCH (05:02)
[2023-07-21] MEDS: PIPERACILLIN/TAZOBACTAM SOD 4.5 GM in D5W MINI-BAG PLUS 50 ML IV SCH ×3 (05:07→18:05)
[2023-07-21] MEDS: D10W 1,000 ML IV SCH (05:07)
[2023-07-21] MEDS: KCL 10MEQ/100ML SWI (KRUN) 10 MEQ in IV 1 EA IV SCH ×2 (05:33→06:34)
[2023-07-21] MEDS: INSULIN LISPRO (NovoLOG) PER UNIT SC SCH ×3 (08:17→17:02)
[2023-07-21] MEDS: FONDAPARINUX SODIUM 2.5 MG/0.5 ML SYRINGE SC SCH ×3 (09:00→16:16)
[2023-07-21] MEDS: PANTOPRAZOLE 40MG VIAL IV SCH (10:09)
[2023-07-21] MEDS: LEVEMIR (INSULIN DETEMIR) 1 UNITS/0.01ML SC SCH (10:10)
[2023-07-21] MEDS: DULoxetine 30MG CAPSULE (CYMBALTA) PO SCH (10:10)
[2023-07-21] MEDS: AUSTEDO 6 MG PO SCH ×2 (12:40→20:15)
[2023-07-22] VITALS (7 sets, daily range): BP systolic 115–146; BP diastolic 62–92; TEMP 97.9–99.5; O2SAT 92–96
[2023-07-22] MEDS: PIPERACILLIN/TAZOBACTAM SOD 4.5 GM in D5W MINI-BAG PLUS 50 ML IV SCH ×2 (00:04→06:08)
[2023-07-22 05:07] LABS: BASO % 0.1 % (0.0-1.0); EOS # 0.2 10^3/uL (0.0-0.5); EOS % 1.7 % (0.0-3.0); HEMATOCRIT 37.4 % (36.0-47.0); HEMOGLOBIN 12.4 g/dl (12.0-15.5); LYMPH # 0.6 10^3/uL (1.5-5.0); LYMPH % 6.3 % (24.0-44.0); MEAN CORPUSCULAR HEMOGLOBIN 32.5 pg (27.0-33.0); MEAN CORPUSCULAR HGB CONC 33.2 g/dl (32.0-36.5); MEAN CORPUSCULAR VOLUME 97.9 fl (80.0-96.0); MONO # 0.9 10^3/uL (0.0-0.8); MONO % 8.6 % (2.0-8.0); NEUTROPHILS # 8.4 10^3/uL (1.5-8.5); NEUTROPHILS % 82.9 % (36.0-66.0); PLATELET COUNT, AUTOMATED 112 10^3/uL (150-450); RED BLOOD COUNT 3.82 10^6/uL (4.00-5.40); WHITE BLOOD COUNT 10.1 10^3/uL (4.0-10.0)
[2023-07-22 05:27] LABS: ALBUMIN 2.4 G/DL (3.2-5.2); ALKALINE PHOSPHATASE 196 U/L (46-116); ALT/SGPT 186 U/L (7.0-40); AST/SGOT 173 U/L (<34); BILIRUBIN,TOTAL 1.4 MG/DL (0.3-1.2); BLOOD UREA NITROGEN 13 MG/DL (9-23); CALCIUM LEVEL 8.7 MG/DL (8.3-10.6); CARBON DIOXIDE LEVEL 28 MMOL/L (20-31); CHLORIDE LEVEL 108 MMOL/L (98-107); CREATININE FOR GFR 0.74 MG/DL (0.55-1.30); GLOMERULAR FILTRATION RATE > 60.0 (>45); GLUCOSE, FASTING 170 MG/DL (74-106); POTASSIUM SERUM 3.5 MMOL/L (3.5-5.1); SODIUM LEVEL 144 MMOL/L (136-145); TOTAL PROTEIN 5.2 G/DL (5.7-8.2)
[2023-07-22] MEDS: INSULIN LISPRO (NovoLOG) PER UNIT SC SCH ×2 (08:30→12:06)
[2023-07-22] MEDS: PANTOPRAZOLE 40MG VIAL IV SCH (08:30)
[2023-07-22] MEDS: DULoxetine 30MG CAPSULE (CYMBALTA) PO SCH (08:30)
[2023-07-22] MEDS: AUSTEDO 6 MG PO SCH ×2 (08:31→20:38)
[2023-07-22] MEDS: LEVEMIR (INSULIN DETEMIR) 1 UNITS/0.01ML SC SCH (09:00)
[2023-07-22] MEDS: FONDAPARINUX SODIUM 2.5 MG/0.5 ML SYRINGE SC SCH (10:28)
[2023-07-22] MEDS ORDERED: INSULIN LISPRO (NovoLOG) PER UNIT XX ONE (13:00)
[2023-07-22] MEDS ORDERED: POTASSIUM CHLORIDE 10MEQ SR TABLET PO ONE (13:05)
[2023-07-22] MEDS: **NOTE PATIENT COMMENT** MISC XX SCH (13:18)
[2023-07-22] MEDS: AUGMENTIN 875 MG TAB PO SCH ×2 (13:28→20:37)
[2023-07-22] MEDS ORDERED: LEVEMIR (INSULIN DETEMIR) 1 UNITS/0.01ML SC ONE (13:40)
[2023-07-22 15:30] LABS: HEMOGLOBIN A1c 8.8 % (4.0-6.0)
[2023-07-22 18:59] LABS: HEPATITIS B CORE ANTIBODY IGM NEGATIVE (NEGATIVE); HEPATITIS C VIRUS ABY INDEX 0.06 INDEX (<0.8)
[2023-07-22] MEDS ORDERED: PILL CUTTER 1 EACH XX ONE (20:42)
[2023-07-23] VITALS: BP 144/67; TEMP 98.5; O2SAT 92
[2023-07-23 04:05] VITALS: BP 133/67; TEMP 98.8; O2SAT 91
[2023-07-23 06:44] LABS: BASO % 0.2 % (0.0-1.0); EOS # 0.2 10^3/uL (0.0-0.5); EOS % 2.9 % (0.0-3.0); HEMATOCRIT 35.7 % (36.0-47.0); LYMPH # 0.5 10^3/uL (1.5-5.0); LYMPH % 7.9 % (24.0-44.0); MEAN CORPUSCULAR HEMOGLOBIN 33.1 pg (27.0-33.0); MEAN CORPUSCULAR HGB CONC 33.6 g/dl (32.0-36.5); MEAN CORPUSCULAR VOLUME 98.6 fl (80.0-96.0); MONO # 0.9 10^3/uL (0.0-0.8); MONO % 13.6 % (2.0-8.0); NEUTROPHILS # 4.7 10^3/uL (1.5-8.5); NEUTROPHILS % 74.8 % (36.0-66.0); PLATELET COUNT, AUTOMATED 149 10^3/uL (150-450); RED BLOOD COUNT 3.62 10^6/uL (4.00-5.40); WHITE BLOOD COUNT 6.2 10^3/uL (4.0-10.0)
[2023-07-23] MEDS ORDERED: PROB250C PO (06:52)
[2023-07-23] MEDS ORDERED: AMOX875T2 PO (06:52)
[2023-07-23 07:10] LABS: ALBUMIN 2.3 G/DL (3.2-5.2); ALKALINE PHOSPHATASE 181 U/L (46-116); ALT/SGPT 130 U/L (7.0-40); AST/SGOT 58 U/L (<34); BILIRUBIN,TOTAL 0.7 MG/DL (0.3-1.2); BLOOD UREA NITROGEN 12 MG/DL (9-23); CALCIUM LEVEL 8.6 MG/DL (8.3-10.6); CARBON DIOXIDE LEVEL 27 MMOL/L (20-31); CHLORIDE LEVEL 110 MMOL/L (98-107); CREATININE FOR GFR 0.57 MG/DL (0.55-1.30); GLOMERULAR FILTRATION RATE > 60.0 (>45); GLUCOSE, FASTING 162 MG/DL (74-106); POTASSIUM SERUM 3.5 MMOL/L (3.5-5.1); SODIUM LEVEL 146 MMOL/L (136-145)
[2023-07-23 07:37] VITALS: BP 132/65; TEMP 99.7; O2SAT 92
[2023-07-23] MEDS: AUSTEDO 6 MG PO SCH (08:45)
[2023-07-23] MEDS: FONDAPARINUX SODIUM 2.5 MG/0.5 ML SYRINGE SC SCH (08:46)
[2023-07-23] MEDS: AUGMENTIN 875 MG TAB PO SCH (08:46)
[2023-07-23] MEDS: DULoxetine 30MG CAPSULE (CYMBALTA) PO SCH (08:46)
[2023-07-23] MEDS: PANTOPRAZOLE 40MG VIAL IV SCH ×2 (08:46→09:00)
[2023-07-23] MEDS: **NOTE PATIENT COMMENT** MISC XX SCH (08:47)
== END 2023-07-23 11:31 | disposition home health service (06) | DRG 637 ==
LOC: M ED 16:11 → M ED INP 17:56 → EEVIPCON 17:56 → M ICU 20:00 → M PCU 07-22 17:50
PROVIDERS: ADMIT Internal Medicine Pulmonary Disease; ATTEND Internal Medicine Nephrology
PROC: 5A1945Z Respiratory Ventilation, 24-96 Consecutive Hours (ICD-10-PCS; principal; 2023-07-17)
PROC: 0BH17EZ Insertion of Endotracheal Airway into Trachea, Via Natural or Artificial Opening (ICD-10-PCS; 2023-07-17)
PROC: B246ZZZ Ultrasonography of Right and Left Heart (ICD-10-PCS; 2023-07-18)
PROC: 02HV33Z Insertion of Infusion Device into Superior Vena Cava, Percutaneous Approach (ICD-10-PCS; 2023-07-18)
DX: E10.11 Type 1 diabetes mellitus with ketoacidosis with coma (principal); J96.00 Acute respiratory failure, unspecified whether with hypoxia or hypercapnia; G93.41 Metabolic encephalopathy; J69.0 Pneumonitis due to inhalation of food and vomit; N17.9 Acute kidney failure, unspecified; M62.82 Rhabdomyolysis; E87.0 Hyperosmolality and hypernatremia; I24.89 Other forms of acute ischemic heart disease; E87.5 Hyperkalemia; F43.10 Post-traumatic stress disorder, unspecified; E10.42 Type 1 diabetes mellitus with diabetic polyneuropathy; E86.0 Dehydration; D69.6 Thrombocytopenia, unspecified; F32.A Depression, unspecified; E83.39 Other disorders of phosphorus metabolism; E10.649 Type 1 diabetes mellitus with hypoglycemia without coma; R74.01 Elevation of levels of liver transaminase levels; K76.0 Fatty (change of) liver, not elsewhere classified; I95.9 Hypotension, unspecified; M85.80 Other specified disorders of bone density and structure, unspecified site; E88.09 Other disorders of plasma-protein metabolism, not elsewhere classified; E87.6 Hypokalemia; E10.65 Type 1 diabetes mellitus with hyperglycemia; T68.XXXA Hypothermia, initial encounter; Z79.4 Long term (current) use of insulin; Z79.899 Other long term (current) drug therapy; Z20.822 Contact with and (suspected) exposure to COVID-19

== ENCOUNTER 2023-07-26 11:14 | Inpatient (IN) | payer MEDICARE ==
[~2023-07-26] VITALS: Ht 162.6 cm; Wt 61.0 kg
[~2023-07-26 11:14] MED LIST changes: +AMOX875T2 PO; +AUST9TAB PO; +MED REC COMMENT; +PROB250C PO
[2023-07-26 12:37] LABS: BASO % 0.3 % (0.0-1.0); EOS # 0.2 10^3/uL (0.0-0.5); EOS % 2.4 % (0.0-3.0); HEMATOCRIT 35.1 % (36.0-47.0); HEMOGLOBIN 11.7 g/dl (12.0-15.5); LYMPH # 1.2 10^3/uL (1.5-5.0); LYMPH % 17.2 % (24.0-44.0); MEAN CORPUSCULAR HEMOGLOBIN 32.8 pg (27.0-33.0); MEAN CORPUSCULAR HGB CONC 33.3 g/dl (32.0-36.5); MEAN CORPUSCULAR VOLUME 98.3 fl (80.0-96.0); MONO # 1.2 10^3/uL (0.0-0.8); MONO % 16.6 % (2.0-8.0); NEUTROPHILS # 4.5 10^3/uL (1.5-8.5); NEUTROPHILS % 62.7 % (36.0-66.0); PLATELET COUNT, AUTOMATED 318 10^3/uL (150-450); RED BLOOD COUNT 3.57 10^6/uL (4.00-5.40); WHITE BLOOD COUNT 7.1 10^3/uL (4.0-10.0)
[2023-07-26 12:57] LABS: INR 0.96; PROTHROMBIN TIME 12.5 SECONDS (12.5-14.5)
[2023-07-26 13:08] LABS: ALBUMIN 2.7 G/DL (3.2-5.2); ALKALINE PHOSPHATASE 136 U/L (46-116); ALT/SGPT 68 U/L (7.0-40); AST/SGOT 23 U/L (<34); BILIRUBIN,DIRECT 0.2 MG/DL (<0.4); BILIRUBIN,TOTAL 0.4 MG/DL (0.3-1.2); BLOOD UREA NITROGEN 7 MG/DL (9-23); CALCIUM LEVEL 8.4 MG/DL (8.3-10.6); CARBON DIOXIDE LEVEL 30 MMOL/L (20-31); CHLORIDE LEVEL 103 MMOL/L (98-107); CK-MB VALUE MASS < 1.0 NG/ML (<3.6); CPK CREATINE PHOSPHOKINASE 94 U/L (34-145); CREATININE FOR GFR 0.58 MG/DL (0.55-1.30); GLOMERULAR FILTRATION RATE > 60.0 (>45); GLUCOSE, FASTING 225 MG/DL (74-106); MB/CK RELATIVE INDEX 1.06 (< OR =4); POTASSIUM SERUM 3.6 MMOL/L (3.5-5.1); SODIUM LEVEL 138 MMOL/L (136-145); TOTAL PROTEIN 5.5 G/DL (5.7-8.2)
[2023-07-26 13:10] LABS: THYROID STIMULATING HORMONE 2.791 uIU/ML (0.55-4.78); THYROXINE (T4) 9.9 UG/DL (4.5-10.9)
[2023-07-26] MEDS ORDERED: ISOVUE-370 76% 100ML VIAL As Ordered ONE (13:51)
[2023-07-26 13:58] LABS: CK-MB VALUE MASS < 1.0 NG/ML (<3.6)
[2023-07-26 14:00] LABS: CPK CREATINE PHOSPHOKINASE 91 U/L (34-145); MB/CK RELATIVE INDEX 1.09 (< OR =4)
[2023-07-26] MEDS ORDERED: MED REC IN PROGRESS XX SCH (15:30)
[2023-07-26] MEDS ORDERED: FUROSEMIDE 40MG/4ML VIAL IV ONE (15:50)
[2023-07-26] MEDS ORDERED: GLUCOSE 4GM CHEW TABLET PO PRN (16:00)
[2023-07-26] MEDS ORDERED: GLUCAGON INJ 1MG VIAL SC PRN (16:00)
[2023-07-26] MEDS ORDERED: DEXTROSE 50% 50ML SYRINGE IV PRN (16:00)
[2023-07-26 16:26] LABS: HEMOGLOBIN A1c 8.9 % (4.0-6.0)
[2023-07-26] MEDS ORDERED: AMOX875T2 PO (17:00)
[2023-07-26] MEDS ORDERED: PROB250C PO (17:00)
[2023-07-26] MEDS ORDERED: HOME MED LIST COMPLETE! XX SCH (17:05)
[2023-07-26 18:35] VITALS: BP 144/71; TEMP 98.8; O2SAT 97
[2023-07-26] MEDS: INSULIN LISPRO (NovoLOG) PER UNIT SC SCH ×2 (18:53→20:33)
[2023-07-26] MEDS: ENOXAPARIN 40MG/0.4ML SYRINGE (J1650 PER 10MG) SC ONE ×2 (18:55→18:58)
[2023-07-26 20:10] VITALS: BP 145/70; TEMP 100.1; O2SAT 92
[2023-07-26] MEDS ORDERED: metOLazone 5 MG TAB PO ONE (20:30)
[2023-07-26] MEDS ORDERED: DEUTETRABENAZINE 9 MG PO SCH (21:00)
[2023-07-26] MEDS ORDERED: NON-FORMULARY 1 EA EA PO SCH (21:00)
[2023-07-26 21:07] VITALS: BP 135/63
[2023-07-26] MEDS: FUROSEMIDE 20MG/2ML VIAL IV SCH (21:07)
[2023-07-26] MEDS: AUGMENTIN 875 MG TAB PO SCH (21:07)
[2023-07-26 22:57] VITALS: TEMP 100.5
[2023-07-26] MEDS ORDERED: FUROSEMIDE 40MG/4ML VIAL IV SCH (23:00)
[2023-07-26] MEDS: ACETAMINOPHEN TAB 650MG DOSE (2X325MG) PO PRN (23:04)
[2023-07-27] VITALS (10 sets, daily range): BP systolic 118–145; BP diastolic 59–69; TEMP 98.1–99.3; O2SAT 87–100
[2023-07-27] MEDS: FUROSEMIDE 20MG/2ML VIAL IV SCH ×3 (00:25→08:16)
[2023-07-27 01:05] LABS: MAGNESIUM LEVEL 1.7 MG/DL (1.8-2.4)
[2023-07-27 05:47] LABS: IONIZED CALCIUM 4.5 MG/DL (4.5-5.3)
[2023-07-27 07:08] LABS: CK-MB VALUE MASS < 1.0 NG/ML (<3.6)
[2023-07-27 07:09] LABS: CPK CREATINE PHOSPHOKINASE 67 U/L (34-145); MB/CK RELATIVE INDEX 1.49 (< OR =4)
[2023-07-27 07:21] LABS: BLOOD UREA NITROGEN 7 MG/DL (9-23); CALCIUM LEVEL 8.5 MG/DL (8.3-10.6); CARBON DIOXIDE LEVEL 30 MMOL/L (20-31); CHLORIDE LEVEL 96 MMOL/L (98-107); CREATININE FOR GFR 0.61 MG/DL (0.55-1.30); GLOMERULAR FILTRATION RATE > 60.0 (>45); GLUCOSE, FASTING 316 MG/DL (74-106); MAGNESIUM LEVEL 1.7 MG/DL (1.8-2.4); POTASSIUM SERUM 3.6 MMOL/L (3.5-5.1); SODIUM LEVEL 136 MMOL/L (136-145)
[2023-07-27] MEDS: INSULIN LISPRO (NovoLOG) PER UNIT SC SCH ×4 (07:30→20:36)
[2023-07-27] MEDS: AUGMENTIN 875 MG TAB PO SCH ×2 (08:16→20:58)
[2023-07-27] MEDS: ACETAMINOPHEN TAB 650MG DOSE (2X325MG) PO PRN ×2 (08:16→21:52)
[2023-07-27] MEDS: DULoxetine 30MG CAPSULE (CYMBALTA) PO SCH (08:16)
[2023-07-27] MEDS ORDERED: MAG SULF 1GM/100ML (MAG RUN) 1 GM in IV 1 EA IV ONE (10:00)
[2023-07-27] MEDS: POTASSIUM CHLORIDE 10MEQ SR TABLET PO SCH (10:44)
[2023-07-27] MEDS: MAGNESIUM OXIDE 400MG TAB (MAG-OX) PO SCH ×2 (10:44→20:58)
[2023-07-27] MEDS ORDERED: metOLazone 5 MG TAB PO ONE (12:30)
[2023-07-27] MEDS ORDERED: FUROSEMIDE 40MG/4ML VIAL IV ONE (12:50)
[2023-07-27] MEDS ORDERED: LASI20TA3 PO (14:43)
[2023-07-27] MEDS ORDERED: CALCIUM GLUCONATE 1,000 MG in D5W MINI-BAG PLUS 100 ML IV ONE (15:00)
[2023-07-27 15:10] LABS: CK-MB VALUE MASS < 1.0 NG/ML (<3.6)
[2023-07-27 15:13] LABS: ACETONE/KETONE 1.69 MMOL/L (0.02-0.27)
[2023-07-27 15:14] LABS: BLOOD UREA NITROGEN 13 MG/DL (9-23); CALCIUM LEVEL 9.5 MG/DL (8.3-10.6); CARBON DIOXIDE LEVEL 30 MMOL/L (20-31); CHLORIDE LEVEL 92 MMOL/L (98-107); CPK CREATINE PHOSPHOKINASE 85 U/L (34-145); CREATININE FOR GFR 0.65 MG/DL (0.55-1.30); GLOMERULAR FILTRATION RATE > 60.0 (>45); GLUCOSE, FASTING 295 MG/DL (74-106); MB/CK RELATIVE INDEX 1.17 (< OR =4); POTASSIUM SERUM 4.3 MMOL/L (3.5-5.1); SODIUM LEVEL 134 MMOL/L (136-145)
[2023-07-27] MEDS ORDERED: LEVEMIR (INSULIN DETEMIR) 1 UNITS/0.01ML SC ONE (16:15)
[2023-07-27 19:19] LABS: BLOOD UREA NITROGEN 12 MG/DL (9-23); CALCIUM LEVEL 9.6 MG/DL (8.3-10.6); CARBON DIOXIDE LEVEL 37 MMOL/L (20-31); CHLORIDE LEVEL 91 MMOL/L (98-107); CREATININE FOR GFR 0.78 MG/DL (0.55-1.30); GLOMERULAR FILTRATION RATE > 60.0 (>45); GLUCOSE, FASTING 258 MG/DL (74-106); POTASSIUM SERUM 3.5 MMOL/L (3.5-5.1); SODIUM LEVEL 133 MMOL/L (136-145)
[2023-07-27] MEDS: ENOXAPARIN 40MG/0.4ML SYRINGE (J1650 PER 10MG) SC SCH ×2 (20:58→20:59)
[2023-07-28 05:41] VITALS: BP 115/60; TEMP 97.9; O2SAT 91
[2023-07-28] MEDS: ACETAMINOPHEN TAB 650MG DOSE (2X325MG) PO PRN ×2 (06:28→12:22)
[2023-07-28 06:30] LABS: BLOOD UREA NITROGEN 13 MG/DL (9-23); CALCIUM LEVEL 8.8 MG/DL (8.3-10.6); CARBON DIOXIDE LEVEL 30 MMOL/L (20-31); CHLORIDE LEVEL 93 MMOL/L (98-107); CREATININE FOR GFR 0.58 MG/DL (0.55-1.30); GLOMERULAR FILTRATION RATE > 60.0 (>45); GLUCOSE, FASTING 321 MG/DL (74-106); POTASSIUM SERUM 4.1 MMOL/L (3.5-5.1); SODIUM LEVEL 134 MMOL/L (136-145)
[2023-07-28 06:32] LABS: ACETONE/KETONE 3.16 MMOL/L (0.02-0.27)
[2023-07-28] MEDS ORDERED: HumuLIN R (REGULAR) INSULIN (NovoLIN R) **100U/ML** PER UNIT IV STA (07:14)
[2023-07-28] MEDS: INSULIN LISPRO (NovoLOG) PER UNIT SC SCH ×4 (08:35→16:46)
[2023-07-28] MEDS: AUGMENTIN 875 MG TAB PO SCH ×2 (08:38→21:15)
[2023-07-28] MEDS: DULoxetine 30MG CAPSULE (CYMBALTA) PO SCH (08:38)
[2023-07-28] MEDS: POTASSIUM CHLORIDE 10MEQ SR TABLET PO SCH (08:40)
[2023-07-28] MEDS: MAGNESIUM OXIDE 400MG TAB (MAG-OX) PO SCH ×2 (08:41→21:15)
[2023-07-28] MEDS ORDERED: INSULIN LISPRO (NovoLOG) PER UNIT SC SCH ×2 (12:00→21:00)
[2023-07-28] MEDS: LEVEMIR (INSULIN DETEMIR) 1 UNITS/0.01ML SC SCH (12:26)
[2023-07-28 14:00] VITALS: BP 111/64; TEMP 97.7; O2SAT 98
[2023-07-28 20:30] VITALS: BP 111/66; TEMP 100.5; O2SAT 98
[2023-07-28] MEDS: ENOXAPARIN 40MG/0.4ML SYRINGE (J1650 PER 10MG) SC SCH (21:15)
[2023-07-29] MEDS: ACETAMINOPHEN TAB 650MG DOSE (2X325MG) PO PRN ×2 (01:33→21:12)
[2023-07-29 05:50] VITALS: BP 112/65; TEMP 98.1; O2SAT 92
[2023-07-29 06:42] LABS: BLOOD UREA NITROGEN 14 MG/DL (9-23); CALCIUM LEVEL 9.1 MG/DL (8.3-10.6); CARBON DIOXIDE LEVEL 32 MMOL/L (20-31); CHLORIDE LEVEL 96 MMOL/L (98-107); CREATININE FOR GFR 0.66 MG/DL (0.55-1.30); GLOMERULAR FILTRATION RATE > 60.0 (>45); GLUCOSE, FASTING 196 MG/DL (74-106); POTASSIUM SERUM 4.2 MMOL/L (3.5-5.1); SODIUM LEVEL 134 MMOL/L (136-145)
[2023-07-29] MEDS: AUGMENTIN 875 MG TAB PO SCH ×2 (08:13→21:12)
[2023-07-29] MEDS: POTASSIUM CHLORIDE 10MEQ SR TABLET PO SCH (08:14)
[2023-07-29] MEDS: DULoxetine 30MG CAPSULE (CYMBALTA) PO SCH (08:15)
[2023-07-29] MEDS: MAGNESIUM OXIDE 400MG TAB (MAG-OX) PO SCH ×2 (08:15→21:13)
[2023-07-29] MEDS: INSULIN LISPRO (NovoLOG) PER UNIT SC SCH ×6 (08:17→18:03)
[2023-07-29] MEDS: LEVEMIR (INSULIN DETEMIR) 1 UNITS/0.01ML SC SCH (08:18)
[2023-07-29 14:00] VITALS: BP 118/68; TEMP 97.3; O2SAT 92
[2023-07-29 20:00] VITALS: BP_SYST 119; BP_SYST 125; BP_DIAS 60; BP_DIAS 69; TEMP 97; TEMP 98.6; O2SAT 92; O2SAT 97
[2023-07-29] MEDS: ENOXAPARIN 40MG/0.4ML SYRINGE (J1650 PER 10MG) SC SCH (21:00)
[2023-07-30] MEDS ORDERED: INSULIN PUMP (PATIENT'S OWN MED) SC SCH (03:00)
[2023-07-30 06:00] VITALS: BP 120/71; TEMP 97.5; O2SAT 93
[2023-07-30] MEDS: MAGNESIUM OXIDE 400MG TAB (MAG-OX) PO SCH ×2 (07:59→20:01)
[2023-07-30] MEDS: AUGMENTIN 875 MG TAB PO SCH ×2 (07:59→20:00)
[2023-07-30] MEDS: DULoxetine 30MG CAPSULE (CYMBALTA) PO SCH (07:59)
[2023-07-30] MEDS: POTASSIUM CHLORIDE 10MEQ SR TABLET PO SCH (07:59)
[2023-07-30] MEDS: ACETAMINOPHEN TAB 650MG DOSE (2X325MG) PO PRN (08:00)
[2023-07-30] MEDS ORDERED: LEVEMIR (INSULIN DETEMIR) 1 UNITS/0.01ML SC SCH ×2 (09:00→12:15)
[2023-07-30] MEDS ORDERED: INSULIN LISPRO (NovoLOG) PER UNIT SC SCH ×3 (12:00→21:00)
[2023-07-30] MEDS ORDERED: NS 500 ML IV ONE (12:15)
[2023-07-30 13:31] LABS: BLOOD UREA NITROGEN 19 MG/DL (9-23); CALCIUM LEVEL 8.7 MG/DL (8.3-10.6); CARBON DIOXIDE LEVEL 25 MMOL/L (20-31); CHLORIDE LEVEL 94 MMOL/L (98-107); CREATININE FOR GFR 0.65 MG/DL (0.55-1.30); GLOMERULAR FILTRATION RATE > 60.0 (>45); GLUCOSE, FASTING 426 MG/DL (74-106); POTASSIUM SERUM 4.9 MMOL/L (3.5-5.1); SODIUM LEVEL 127 MMOL/L (136-145)
[2023-07-30 14:00] VITALS: BP 128/93; TEMP 98.4; O2SAT 93
[2023-07-30 20:00] VITALS: BP 124/60; TEMP 97.9; O2SAT 95
[2023-07-30] MEDS: ENOXAPARIN 40MG/0.4ML SYRINGE (J1650 PER 10MG) SC SCH ×2 (20:01→20:02)
[2023-07-31 06:00] VITALS: BP 132/61; TEMP 98.2; O2SAT 93
[2023-07-31 08:55] LABS: BLOOD UREA NITROGEN 13 MG/DL (9-23); CALCIUM LEVEL 9.3 MG/DL (8.3-10.6); CARBON DIOXIDE LEVEL 30 MMOL/L (20-31); CHLORIDE LEVEL 98 MMOL/L (98-107); CREATININE FOR GFR 0.53 MG/DL (0.55-1.30); GLOMERULAR FILTRATION RATE > 60.0 (>45); GLUCOSE, FASTING 167 MG/DL (74-106); POTASSIUM SERUM 4.2 MMOL/L (3.5-5.1); SODIUM LEVEL 134 MMOL/L (136-145)
[2023-07-31] MEDS: POTASSIUM CHLORIDE 10MEQ SR TABLET PO SCH (09:22)
[2023-07-31] MEDS: DULoxetine 30MG CAPSULE (CYMBALTA) PO SCH (09:22)
[2023-07-31] MEDS: MAGNESIUM OXIDE 400MG TAB (MAG-OX) PO SCH (09:22)
[2023-07-31] MEDS: AUGMENTIN 875 MG TAB PO SCH (09:22)
== END 2023-07-31 13:08 | disposition home health service (06) | DRG 186 ==
LOC: M ED 11:14 → M ED INP 15:47 → M MSPAV 18:34
PROVIDERS: ADMIT General Practice; ATTEND Student in an Organized Health Care Education/Training Program
DX: J90 Pleural effusion, not elsewhere classified (principal); J69.0 Pneumonitis due to inhalation of food and vomit; J98.11 Atelectasis; R74.01 Elevation of levels of liver transaminase levels; E87.70 Fluid overload, unspecified; K76.0 Fatty (change of) liver, not elsewhere classified; I27.20 Pulmonary hypertension, unspecified; D69.6 Thrombocytopenia, unspecified; E10.42 Type 1 diabetes mellitus with diabetic polyneuropathy; E10.65 Type 1 diabetes mellitus with hyperglycemia; E55.9 Vitamin D deficiency, unspecified; L57.0 Actinic keratosis; R32 Unspecified urinary incontinence; F32.A Depression, unspecified; F43.10 Post-traumatic stress disorder, unspecified; G24.01 Drug induced subacute dyskinesia; M85.80 Other specified disorders of bone density and structure, unspecified site; Z79.2 Long term (current) use of antibiotics; Z79.4 Long term (current) use of insulin; Z79.899 Other long term (current) drug therapy; Z20.822 Contact with and (suspected) exposure to COVID-19

== ENCOUNTER → 2023-08-10 | Outpatient (CLI) | payer MEDICARE ==
[~2023-08-10] MED LIST changes: +LASI20TA3 PO; +PROBCAP14 PO
[2023-08-10 17:13] LABS: HEMATOCRIT 39.2 % (36.0-47.0); HEMOGLOBIN 13.4 g/dl (12.0-15.5); MEAN CORPUSCULAR HEMOGLOBIN 32.1 pg (27.0-33.0); MEAN CORPUSCULAR HGB CONC 34.2 g/dl (32.0-36.5); PLATELET COUNT, AUTOMATED 410 10^3/uL (150-450); RED BLOOD COUNT 4.17 10^6/uL (4.00-5.40); WHITE BLOOD COUNT 15.5 10^3/uL (4.0-10.0)
[2023-08-10 17:33] LABS: ALBUMIN 2.4 G/DL (3.2-5.2); ALKALINE PHOSPHATASE 128 U/L (46-116); ALT/SGPT 13 U/L (7.0-40); AST/SGOT 10 U/L (<34); BILIRUBIN,TOTAL 0.7 MG/DL (0.3-1.2); BLOOD UREA NITROGEN 6 MG/DL (9-23); CALCIUM LEVEL 8.7 MG/DL (8.3-10.6); CARBON DIOXIDE LEVEL 28 MMOL/L (20-31); CHLORIDE LEVEL 90 MMOL/L (98-107); GLOMERULAR FILTRATION RATE > 60.0 (>45); GLUCOSE, FASTING 290 MG/DL (74-106); POTASSIUM SERUM 3.2 MMOL/L (3.5-5.1); SODIUM LEVEL 127 MMOL/L (136-145); TOTAL PROTEIN 5.8 G/DL (5.7-8.2)
[2023-08-10 18:30] LABS: ATYPICAL LYMPH 6 % (0-5); EOSINOPHILS 1 % (0-3); LYMPHOCYTES 11 % (16-44); METAMYELOCYTES 1 % (0-0); MONOCYTES 5 % (0-5); MYELOCYTES 1 % (0-0); NEUTROPHILS 59 % (28-66)
[2023-08-10 18:31] LABS: PLATELET ESTIMATE NORMAL (NORMAL)
[2023-08-10 18:32] LABS: PLATELET CLUMPS SMALL AMT
== END ==
LOC: M PLALAB 16:00
PROVIDERS: ATTEND Registered Nurse
DX: R19.7 Diarrhea, unspecified (principal)

== ENCOUNTER 2023-08-11 12:53 | Inpatient (IN) | payer MEDICARE ==
[~2023-08-11] VITALS: Ht 162.6 cm; Wt 65.5 kg
[~2023-08-11 12:53] MED LIST changes: -PROBCAP14 PO
[2023-08-11] MEDS ORDERED: PROBCAP14 PO (14:08)
[2023-08-11] MEDS ORDERED: HOME MED LIST COMPLETE! XX SCH (14:10)
[2023-08-11] MEDS ORDERED: VANCOMYCIN ORAL SOL 250MG/5ML ORAL SYRINGE PO ONE (14:10)
[2023-08-11] MEDS ORDERED: NS 1,000 ML IV ONE (14:10)
[2023-08-11 14:13] LABS: VENOUS BASE EXCESS 2.6 (-2.0-2.0); VENOUS O2 SATURATION 52.8 % (60.0-80.0); VENOUS PARTIAL PRESSURE CO2 46.6 mmHg (38.0-50.0); VENOUS PARTIAL PRESSURE O2 27.4 mmHg (30.0-50.0); VENOUS PH 7.397 UNITS (7.330-7.430); VENOUS STANDARD HCO3 25.7 MMOL/L; VENOUS TOTAL CO2 29.5 MMOL/L (24.0-28.0)
[2023-08-11 14:29] LABS: HEMATOCRIT 35.4 % (36.0-47.0); HEMOGLOBIN 12.3 g/dl (12.0-15.5); MEAN CORPUSCULAR HEMOGLOBIN 32.6 pg (27.0-33.0); MEAN CORPUSCULAR HGB CONC 34.7 g/dl (32.0-36.5); MEAN CORPUSCULAR VOLUME 93.9 fl (80.0-96.0); PLATELET COUNT, AUTOMATED 412 10^3/uL (150-450); RED BLOOD COUNT 3.77 10^6/uL (4.00-5.40); WHITE BLOOD COUNT 15.9 10^3/uL (4.0-10.0)
[2023-08-11 15:07] LABS: ACETONE/KETONE 0.09 MMOL/L (0.02-0.27); ATYPICAL LYMPH 8 % (0-5); LYMPHOCYTES 1 % (16-44); METAMYELOCYTES 2 % (0-0); MONOCYTES 6 % (0-5); NEUTROPHILS 79 % (28-66)
[2023-08-11 15:08] LABS: PLATELET ESTIMATE INCREASED (NORMAL); TOXIC GRANULATION 2+; TOXIC VACUOLATION 2+
[2023-08-11 15:11] LABS: ALBUMIN 2.2 G/DL (3.2-5.2); ALKALINE PHOSPHATASE 118 U/L (46-116); ALT/SGPT 12 U/L (7.0-40); AST/SGOT < 8 U/L (<34); BILIRUBIN,DIRECT 0.3 MG/DL (<0.4); BILIRUBIN,TOTAL 0.6 MG/DL (0.3-1.2); BLOOD UREA NITROGEN < 5 MG/DL (9-23); CALCIUM LEVEL 8.5 MG/DL (8.3-10.6); CARBON DIOXIDE LEVEL 31 MMOL/L (20-31); CHLORIDE LEVEL 93 MMOL/L (98-107); CREATININE FOR GFR 0.47 MG/DL (0.55-1.30); GLOMERULAR FILTRATION RATE > 60.0 (>45); GLUCOSE, FASTING 121 MG/DL (74-106); MAGNESIUM LEVEL 1.6 MG/DL (1.8-2.4); POTASSIUM SERUM 3.3 MMOL/L (3.5-5.1); SODIUM LEVEL 129 MMOL/L (136-145); TOTAL PROTEIN 5.3 G/DL (5.7-8.2)
[2023-08-11] MEDS ORDERED: ISOVUE-370 76% 100ML VIAL As Ordered ONE (15:21)
[2023-08-11] MEDS ORDERED: DEXTROSE 50% 50ML SYRINGE IV STA (16:05)
[2023-08-11] MEDS ORDERED: MAG SULF 1GM/100ML (MAG RUN) 1 GM in IV 1 EA IV ONE ×2 (16:45→18:00)
[2023-08-11] MEDS ORDERED: KCL 10MEQ/100ML SWI (KRUN) 10 MEQ in IV 1 EA IV ONE (16:45)
[2023-08-11] MEDS ORDERED: DEXTROSE 50% 50ML SYRINGE IV PRN (17:35)
[2023-08-11] MEDS ORDERED: GLUCOSE 4GM CHEW TABLET PO PRN (17:35)
[2023-08-11] MEDS ORDERED: GLUCAGON INJ 1MG VIAL SC PRN (17:35)
[2023-08-11] MEDS: KCL 40MEQ in NS 1000ML 1,000 ML IV SCH (18:48)
[2023-08-11] MEDS ORDERED: POTASSIUM CHLORIDE 10MEQ SR TABLET PO ONE (18:55)
[2023-08-11] MEDS ORDERED: POTASSIUM CHLORIDE 10% LIQ 20MEQ/15ML UDC PO ONE (20:15)
[2023-08-11] MEDS ORDERED: POTASSIUM CHLORIDE 10MEQ SR TABLET PO SCH (21:00)
[2023-08-11] MEDS: MAGNESIUM OXIDE 400MG TAB (MAG-OX) PO SCH (21:09)
[2023-08-11] MEDS: FIDAXOMICIN 200 MG TAB (DIFICID) PO SCH (21:09)
[2023-08-11 21:54] VITALS: BP 129/59; TEMP 97.9; O2SAT 97
[2023-08-12] MEDS: KCL 40MEQ in NS 1000ML 1,000 ML IV SCH ×3 (00:18→20:14)
[2023-08-12] MEDS ORDERED: ACETAMINOPHEN TAB 650MG DOSE (2X325MG) PO ONE (00:30)
[2023-08-12 03:33] VITALS: BP 124/58; TEMP 98.2; O2SAT 98
[2023-08-12 07:19] LABS: HEMATOCRIT 33.7 % (36.0-47.0); HEMOGLOBIN 11.5 g/dl (12.0-15.5); MEAN CORPUSCULAR HEMOGLOBIN 32.1 pg (27.0-33.0); MEAN CORPUSCULAR HGB CONC 34.1 g/dl (32.0-36.5); MEAN CORPUSCULAR VOLUME 94.1 fl (80.0-96.0); PLATELET COUNT, AUTOMATED 366 10^3/uL (150-450); RED BLOOD COUNT 3.58 10^6/uL (4.00-5.40); WHITE BLOOD COUNT 13.8 10^3/uL (4.0-10.0)
[2023-08-12 07:50] LABS: BLOOD UREA NITROGEN < 5 MG/DL (9-23); CARBON DIOXIDE LEVEL 28 MMOL/L (20-31); CHLORIDE LEVEL 101 MMOL/L (98-107); GLOMERULAR FILTRATION RATE > 60.0 (>45); GLUCOSE, FASTING 194 MG/DL (74-106); MAGNESIUM LEVEL 1.6 MG/DL (1.8-2.4); POTASSIUM SERUM 3.8 MMOL/L (3.5-5.1); SODIUM LEVEL 134 MMOL/L (136-145)
[2023-08-12 08:51] LABS: ATYPICAL LYMPH 1 % (0-5); EOSINOPHILS 3 % (0-3); LYMPHOCYTES 4 % (16-44); METAMYELOCYTES 1 % (0-0); MONOCYTES 7 % (0-5); NEUTROPHILS 81 % (28-66); PLATELET ESTIMATE NORMAL (NORMAL); TOXIC GRANULATION 3+; TOXIC VACUOLATION 1+
[2023-08-12] MEDS: MAGNESIUM OXIDE 400MG TAB (MAG-OX) PO SCH ×3 (09:47→20:14)
[2023-08-12] MEDS: DULoxetine 30MG CAPSULE (CYMBALTA) PO SCH (09:47)
[2023-08-12] MEDS: RIVAROXABAN 10MG TAB (XARELTO) PO SCH (09:47)
[2023-08-12] MEDS: FIDAXOMICIN 200 MG TAB (DIFICID) PO SCH ×2 (11:50→20:14)
[2023-08-12] MEDS: ACETAMINOPHEN TAB 650MG DOSE (2X325MG) PO PRN ×2 (13:18→20:40)
[2023-08-12] MEDS ORDERED: FIDA200TA PO (14:19)
[2023-08-12 15:54] VITALS: BP 111/63; TEMP 98.6; O2SAT 97
[2023-08-12 20:19] VITALS: BP 106/54; TEMP 100.4; O2SAT 97
[2023-08-13 03:02] VITALS: BP 111/54; TEMP 97.2; O2SAT 97
[2023-08-13] MEDS: ACETAMINOPHEN TAB 650MG DOSE (2X325MG) PO PRN (03:02)
[2023-08-13] MEDS: KCL 40MEQ in NS 1000ML 1,000 ML IV SCH (06:04)
[2023-08-13] MEDS: MUPIROCIN 2% OINT 22 GM TUBE TOP SCH ×2 (06:04→21:10)
[2023-08-13 06:24] LABS: HEMATOCRIT 31.5 % (36.0-47.0); HEMOGLOBIN 10.6 g/dl (12.0-15.5); MEAN CORPUSCULAR HEMOGLOBIN 32.2 pg (27.0-33.0); MEAN CORPUSCULAR HGB CONC 33.7 g/dl (32.0-36.5); MEAN CORPUSCULAR VOLUME 95.7 fl (80.0-96.0); PLATELET COUNT, AUTOMATED 382 10^3/uL (150-450); RED BLOOD COUNT 3.29 10^6/uL (4.00-5.40); WHITE BLOOD COUNT 11.6 10^3/uL (4.0-10.0)
[2023-08-13 06:59] LABS: BLOOD UREA NITROGEN < 5 MG/DL (9-23); CALCIUM LEVEL 8.1 MG/DL (8.3-10.6); CARBON DIOXIDE LEVEL 27 MMOL/L (20-31); CHLORIDE LEVEL 106 MMOL/L (98-107); CREATININE FOR GFR 0.41 MG/DL (0.55-1.30); GLOMERULAR FILTRATION RATE > 60.0 (>45); GLUCOSE, FASTING 78 MG/DL (74-106); MAGNESIUM LEVEL 1.8 MG/DL (1.8-2.4); POTASSIUM SERUM 4.4 MMOL/L (3.5-5.1); SODIUM LEVEL 137 MMOL/L (136-145)
[2023-08-13 07:24] LABS: ATYPICAL LYMPH 1 % (0-5); BASOPHILS 1 % (0-1); LYMPHOCYTES 7 % (16-44); METAMYELOCYTES 2 % (0-0); MONOCYTES 8 % (0-5); MYELOCYTES 2 % (0-0); NEUTROPHILS 66 % (28-66)
[2023-08-13 07:25] LABS: PLATELET ESTIMATE NORMAL (NORMAL); TOXIC VACUOLATION 1+
[2023-08-13 07:26] LABS: TOXIC GRANULATION 2+
[2023-08-13 08:00] VITALS: BP 118/62; TEMP 97.8; O2SAT 98
[2023-08-13] MEDS: FIDAXOMICIN 200 MG TAB (DIFICID) PO SCH ×2 (08:39→21:08)
[2023-08-13] MEDS: DULoxetine 30MG CAPSULE (CYMBALTA) PO SCH (08:39)
[2023-08-13] MEDS: RIVAROXABAN 10MG TAB (XARELTO) PO SCH (08:39)
[2023-08-13] MEDS: MAGNESIUM OXIDE 400MG TAB (MAG-OX) PO SCH (08:39)
[2023-08-13] MEDS: NS 1,000 ML IV SCH ×2 (11:22→23:40)
[2023-08-13] MEDS: KETOROLAC 30 MG/ML 1ML VIAL IV PRN ×2 (11:22→21:09)
[2023-08-13 13:00] VITALS: BP 105/58; TEMP 97.9; O2SAT 95
[2023-08-13 20:00] VITALS: BP 125/67; TEMP 98.3; O2SAT 99
[2023-08-14 06:00] VITALS: BP 98/51; TEMP 98.2; O2SAT 97
[2023-08-14 06:57] LABS: BASO # 0.1 10^3/uL (0.0-0.2); BASO % 0.8 % (0.0-1.0); EOS # 0.2 10^3/uL (0.0-0.5); EOS % 1.6 % (0.0-3.0); HEMATOCRIT 36.4 % (36.0-47.0); HEMOGLOBIN 11.9 g/dl (12.0-15.5); LYMPH # 0.7 10^3/uL (1.5-5.0); LYMPH % 6.8 % (24.0-44.0); MEAN CORPUSCULAR HEMOGLOBIN 32.2 pg (27.0-33.0); MEAN CORPUSCULAR HGB CONC 32.7 g/dl (32.0-36.5); MEAN CORPUSCULAR VOLUME 98.4 fl (80.0-96.0); MONO % 9.3 % (2.0-8.0); NEUTROPHILS # 8.2 10^3/uL (1.5-8.5); NEUTROPHILS % 78.5 % (36.0-66.0); PLATELET COUNT, AUTOMATED 392 10^3/uL (150-450); WHITE BLOOD COUNT 10.4 10^3/uL (4.0-10.0)
[2023-08-14 07:20] LABS: BLOOD UREA NITROGEN < 5 MG/DL (9-23); CALCIUM LEVEL 7.7 MG/DL (8.3-10.6); CARBON DIOXIDE LEVEL 21 MMOL/L (20-31); CHLORIDE LEVEL 104 MMOL/L (98-107); CREATININE FOR GFR 0.49 MG/DL (0.55-1.30); GLOMERULAR FILTRATION RATE > 60.0 (>45); GLUCOSE, FASTING 361 MG/DL (74-106); MAGNESIUM LEVEL 1.7 MG/DL (1.8-2.4); POTASSIUM SERUM 5.1 MMOL/L (3.5-5.1); SODIUM LEVEL 135 MMOL/L (136-145)
[2023-08-14] MEDS ORDERED: LEVEMIR (INSULIN DETEMIR) 1 UNITS/0.01ML SC SCH ×2 (09:00)
[2023-08-14] MEDS: INSULIN LISPRO (NovoLOG) PER UNIT SC SCH ×4 (09:39→21:00)
[2023-08-14] MEDS: RIVAROXABAN 10MG TAB (XARELTO) PO SCH (09:39)
[2023-08-14] MEDS: FIDAXOMICIN 200 MG TAB (DIFICID) PO SCH ×2 (09:39→21:05)
[2023-08-14] MEDS: DULoxetine 30MG CAPSULE (CYMBALTA) PO SCH (09:40)
[2023-08-14] MEDS: MAGNESIUM OXIDE 400MG TAB (MAG-OX) PO SCH ×2 (09:40→21:05)
[2023-08-14] MEDS: MUPIROCIN 2% OINT 22 GM TUBE TOP SCH ×2 (09:43→21:00)
[2023-08-14] MEDS: NS 1,000 ML IV SCH (13:14)
[2023-08-14 14:00] VITALS: BP 108/56; TEMP 97.6
[2023-08-14 20:48] VITALS: BP 108/54; TEMP 98.9; O2SAT 97
[2023-08-14] MEDS: KETOROLAC 30 MG/ML 1ML VIAL IV PRN (21:06)
[2023-08-15] MEDS: NS 1,000 ML IV SCH (02:20)
[2023-08-15] MEDS: ACETAMINOPHEN TAB 650MG DOSE (2X325MG) PO PRN (05:15)
[2023-08-15 06:00] VITALS: BP 131/60; TEMP 98.1; O2SAT 96
[2023-08-15] MEDS: KETOROLAC 30 MG/ML 1ML VIAL IV PRN (07:27)
[2023-08-15] MEDS: INSULIN LISPRO (NovoLOG) PER UNIT SC SCH ×4 (07:30→19:47)
[2023-08-15] MEDS ORDERED: LEVEMIR (INSULIN DETEMIR) 1 UNITS/0.01ML SC SCH (09:00)
[2023-08-15] MEDS: FIDAXOMICIN 200 MG TAB (DIFICID) PO SCH ×2 (09:03→20:02)
[2023-08-15] MEDS: DULoxetine 30MG CAPSULE (CYMBALTA) PO SCH (09:03)
[2023-08-15] MEDS: MAGNESIUM OXIDE 400MG TAB (MAG-OX) PO SCH (09:03)
[2023-08-15] MEDS: RIVAROXABAN 10MG TAB (XARELTO) PO SCH (09:03)
[2023-08-15] MEDS: MUPIROCIN 2% OINT 22 GM TUBE TOP SCH ×2 (09:04→20:02)
[2023-08-15] MEDS: LEVEMIR (INSULIN DETEMIR) 1 UNITS/0.01ML SC SCH (09:04)
[2023-08-15] MEDS ORDERED: FUROSEMIDE 20MG/2ML VIAL IV ONE (13:55)
[2023-08-15 14:02] VITALS: BP 133/75; TEMP 97.7; O2SAT 100
[2023-08-15 19:53] VITALS: BP 110/59; TEMP 98.8; O2SAT 97
[2023-08-16] MEDS: ACETAMINOPHEN TAB 650MG DOSE (2X325MG) PO PRN ×2 (01:09→20:19)
[2023-08-16] MEDS ORDERED: BENZONATATE 100MG CAPSULE PO PRN (03:15)
[2023-08-16 06:00] VITALS: BP 119/60; TEMP 98.1; O2SAT 95
[2023-08-16 07:08] LABS: BASO % 0.5 % (0.0-1.0); EOS # 0.2 10^3/uL (0.0-0.5); EOS % 3.4 % (0.0-3.0); HEMATOCRIT 31.6 % (36.0-47.0); HEMOGLOBIN 10.7 g/dl (12.0-15.5); LYMPH % 16.1 % (24.0-44.0); MEAN CORPUSCULAR HEMOGLOBIN 32.3 pg (27.0-33.0); MEAN CORPUSCULAR HGB CONC 33.9 g/dl (32.0-36.5); MEAN CORPUSCULAR VOLUME 95.5 fl (80.0-96.0); MONO # 0.8 10^3/uL (0.0-0.8); MONO % 13.7 % (2.0-8.0); NEUTROPHILS % 64.2 % (36.0-66.0); PLATELET COUNT, AUTOMATED 439 10^3/uL (150-450); RED BLOOD COUNT 3.31 10^6/uL (4.00-5.40); WHITE BLOOD COUNT 6.2 10^3/uL (4.0-10.0)
[2023-08-16 07:39] LABS: BLOOD UREA NITROGEN 6 MG/DL (9-23); CALCIUM LEVEL 7.7 MG/DL (8.3-10.6); CARBON DIOXIDE LEVEL 28 MMOL/L (20-31); CHLORIDE LEVEL 108 MMOL/L (98-107); CREATININE FOR GFR 0.45 MG/DL (0.55-1.30); GLOMERULAR FILTRATION RATE > 60.0 (>45); GLUCOSE, FASTING 125 MG/DL (74-106); MAGNESIUM LEVEL 1.7 MG/DL (1.8-2.4); POTASSIUM SERUM 4.1 MMOL/L (3.5-5.1); SODIUM LEVEL 141 MMOL/L (136-145)
[2023-08-16] MEDS ORDERED: FUROSEMIDE 40MG/4ML VIAL IV SCH (09:00)
[2023-08-16] MEDS ORDERED: DOCUSATE SODIUM 100MG CAPSULE PO SCH (09:00)
[2023-08-16] MEDS: FIDAXOMICIN 200 MG TAB (DIFICID) PO SCH ×2 (09:23→20:19)
[2023-08-16] MEDS: RIVAROXABAN 10MG TAB (XARELTO) PO SCH (09:23)
[2023-08-16] MEDS: MUPIROCIN 2% OINT 22 GM TUBE TOP SCH ×2 (09:24→20:34)
[2023-08-16] MEDS: DULoxetine 30MG CAPSULE (CYMBALTA) PO SCH (09:24)
[2023-08-16] MEDS: LEVEMIR (INSULIN DETEMIR) 1 UNITS/0.01ML SC SCH (09:24)
[2023-08-16] MEDS: INSULIN LISPRO (NovoLOG) PER UNIT SC SCH ×4 (09:36→20:34)
[2023-08-16] MEDS: MAG SULF 1GM/100ML (MAG RUN) 1 GM in IV 1 EA IV SCH ×2 (09:36→10:56)
[2023-08-16] MEDS: FAMOTIDINE 20 MG TAB PO SCH ×2 (12:13→20:19)
[2023-08-16 14:00] VITALS: BP 102/56; TEMP 98.2; O2SAT 94
[2023-08-16] MEDS ORDERED: DOCUSATE SODIUM 100MG CAPSULE PO ONE (14:15)
[2023-08-16] MEDS: DOCUSATE SODIUM 100MG CAPSULE PO SCH (20:19)
[2023-08-16 20:21] VITALS: BP 122/59; TEMP 97.9
[2023-08-17 06:11] VITALS: BP 111/58; TEMP 97.6; O2SAT 97
[2023-08-17] MEDS: INSULIN LISPRO (NovoLOG) PER UNIT SC SCH ×4 (07:08→20:56)
[2023-08-17 09:00] LABS: BASO % 0.7 % (0.0-1.0); EOS # 0.1 10^3/uL (0.0-0.5); EOS % 2.3 % (0.0-3.0); HEMATOCRIT 34.8 % (36.0-47.0); HEMOGLOBIN 11.6 g/dl (12.0-15.5); LYMPH # 0.8 10^3/uL (1.5-5.0); LYMPH % 14.6 % (24.0-44.0); MEAN CORPUSCULAR HEMOGLOBIN 31.8 pg (27.0-33.0); MEAN CORPUSCULAR HGB CONC 33.3 g/dl (32.0-36.5); MEAN CORPUSCULAR VOLUME 95.3 fl (80.0-96.0); MONO # 0.7 10^3/uL (0.0-0.8); MONO % 11.8 % (2.0-8.0); NEUTROPHILS # 3.9 10^3/uL (1.5-8.5); NEUTROPHILS % 67.5 % (36.0-66.0); PLATELET COUNT, AUTOMATED 503 10^3/uL (150-450); RED BLOOD COUNT 3.65 10^6/uL (4.00-5.40); WHITE BLOOD COUNT 5.8 10^3/uL (4.0-10.0)
[2023-08-17] MEDS ORDERED: MOM 30ML SUSPENSION UDC PO SCH (09:00)
[2023-08-17 09:10] LABS: BLOOD UREA NITROGEN < 5 MG/DL (9-23); CALCIUM LEVEL 8.2 MG/DL (8.3-10.6); CARBON DIOXIDE LEVEL 31 MMOL/L (20-31); CHLORIDE LEVEL 102 MMOL/L (98-107); CREATININE FOR GFR 0.45 MG/DL (0.55-1.30); GLOMERULAR FILTRATION RATE > 60.0 (>45); GLUCOSE, FASTING 95 MG/DL (74-106); POTASSIUM SERUM 3.9 MMOL/L (3.5-5.1); SODIUM LEVEL 138 MMOL/L (136-145)
[2023-08-17] MEDS: FAMOTIDINE 20 MG TAB PO SCH ×2 (10:19→20:49)
[2023-08-17] MEDS: DOCUSATE SODIUM 100MG CAPSULE PO SCH ×2 (10:20→20:51)
[2023-08-17] MEDS: FIDAXOMICIN 200 MG TAB (DIFICID) PO SCH ×2 (10:20→20:49)
[2023-08-17] MEDS: DULoxetine 30MG CAPSULE (CYMBALTA) PO SCH (10:20)
[2023-08-17] MEDS: KETOROLAC 30 MG/ML 1ML VIAL IV SCH ×2 (10:22→10:33)
[2023-08-17] MEDS: LEVEMIR (INSULIN DETEMIR) 1 UNITS/0.01ML SC SCH (10:23)
[2023-08-17] MEDS: MUPIROCIN 2% OINT 22 GM TUBE TOP SCH ×2 (10:24→21:02)
[2023-08-17] MEDS: ACETAMINOPHEN TAB 650MG DOSE (2X325MG) PO PRN (11:10)
[2023-08-17] MEDS: KETOROLAC TROMETHAMINE 10 MG TAB PO SCH ×3 (11:10→20:51)
[2023-08-17 14:30] VITALS: BP 115/79; TEMP 96.8; O2SAT 98
[2023-08-17 20:00] VITALS: BP 135/62; TEMP 97; O2SAT 97
[2023-08-18 06:00] VITALS: BP 117/56; TEMP 97.4; O2SAT 94
[2023-08-18] MEDS: FAMOTIDINE 20 MG TAB PO SCH ×2 (08:25→20:56)
[2023-08-18] MEDS: FIDAXOMICIN 200 MG TAB (DIFICID) PO SCH ×2 (08:25→20:57)
[2023-08-18] MEDS: DULoxetine 30MG CAPSULE (CYMBALTA) PO SCH (08:26)
[2023-08-18] MEDS: KETOROLAC TROMETHAMINE 10 MG TAB PO SCH ×2 (08:26→20:57)
[2023-08-18] MEDS: LEVEMIR (INSULIN DETEMIR) 1 UNITS/0.01ML SC SCH (08:27)
[2023-08-18] MEDS: INSULIN LISPRO (NovoLOG) PER UNIT SC SCH ×4 (08:27→20:58)
[2023-08-18] MEDS: MUPIROCIN 2% OINT 22 GM TUBE TOP SCH ×2 (08:29→20:58)
[2023-08-18] MEDS: DOCUSATE SODIUM 100MG CAPSULE PO SCH (09:00)
[2023-08-18] MEDS ORDERED: DOCUSATE SODIUM 100MG CAPSULE PO PRN (09:45)
[2023-08-18] MEDS ORDERED: FUROSEMIDE 40MG/4ML VIAL IV SCH (11:50)
[2023-08-18] MEDS: TORSEMIDE 20 MG TAB PO SCH ×2 (12:25→17:20)
[2023-08-18 12:27] LABS: BASO # 0.1 10^3/uL (0.0-0.2); BASO % 0.6 % (0.0-1.0); EOS # 0.1 10^3/uL (0.0-0.5); HEMATOCRIT 39.4 % (36.0-47.0); HEMOGLOBIN 12.8 g/dl (12.0-15.5); LYMPH % 11.2 % (24.0-44.0); MEAN CORPUSCULAR HEMOGLOBIN 32.2 pg (27.0-33.0); MEAN CORPUSCULAR HGB CONC 32.5 g/dl (32.0-36.5); MONO # 0.7 10^3/uL (0.0-0.8); MONO % 7.3 % (2.0-8.0); NEUTROPHILS # 7.2 10^3/uL (1.5-8.5); NEUTROPHILS % 78.7 % (36.0-66.0); PLATELET COUNT, AUTOMATED 631 10^3/uL (150-450); RED BLOOD COUNT 3.98 10^6/uL (4.00-5.40); WHITE BLOOD COUNT 9.1 10^3/uL (4.0-10.0)
[2023-08-18 13:04] LABS: BLOOD UREA NITROGEN 8 MG/DL (9-23); CALCIUM LEVEL 8.9 MG/DL (8.3-10.6); CARBON DIOXIDE LEVEL 32 MMOL/L (20-31); CHLORIDE LEVEL 101 MMOL/L (98-107); CREATININE FOR GFR 0.54 MG/DL (0.55-1.30); GLOMERULAR FILTRATION RATE > 60.0 (>45); GLUCOSE, FASTING 231 MG/DL (74-106); MAGNESIUM LEVEL 2.2 MG/DL (1.8-2.4); POTASSIUM SERUM 5.3 MMOL/L (3.5-5.1); SODIUM LEVEL 138 MMOL/L (136-145)
[2023-08-18] MEDS: ACETAMINOPHEN TAB 650MG DOSE (2X325MG) PO PRN (13:33)
[2023-08-18 14:16] VITALS: BP 118/73; TEMP 97.7; O2SAT 99
[2023-08-18 18:51] VITALS: BP 115/50; TEMP 97.2; O2SAT 97
[2023-08-18 21:07] VITALS: BP 116/66; TEMP 97.5; O2SAT 100
[2023-08-19] MEDS: ACETAMINOPHEN TAB 650MG DOSE (2X325MG) PO PRN (03:47)
[2023-08-19] MEDS ORDERED: MIRALAX *UNIT DOSE* 17GM PACKET PO PRN (04:40)
[2023-08-19 05:10] VITALS: BP 108/49; TEMP 97.7; O2SAT 96
[2023-08-19 07:47] LABS: HEMOGLOBIN 10.9 g/dl (12.0-15.5); MEAN CORPUSCULAR HEMOGLOBIN 31.8 pg (27.0-33.0); MEAN CORPUSCULAR VOLUME 96.2 fl (80.0-96.0); PLATELET COUNT, AUTOMATED 536 10^3/uL (150-450); RED BLOOD COUNT 3.43 10^6/uL (4.00-5.40); WHITE BLOOD COUNT 7.4 10^3/uL (4.0-10.0)
[2023-08-19] MEDS: GASTROGRAFIN SOLUTION 30ML PO SCH ×2 (07:57→08:03)
[2023-08-19] MEDS: INSULIN LISPRO (NovoLOG) PER UNIT SC SCH ×4 (07:58→20:34)
[2023-08-19] MEDS: DULoxetine 30MG CAPSULE (CYMBALTA) PO SCH (08:00)
[2023-08-19] MEDS: FIDAXOMICIN 200 MG TAB (DIFICID) PO SCH ×2 (08:00→20:40)
[2023-08-19] MEDS: TORSEMIDE 20 MG TAB PO SCH ×2 (08:00→17:28)
[2023-08-19] MEDS: FAMOTIDINE 20 MG TAB PO SCH ×2 (08:00→20:40)
[2023-08-19] MEDS: KETOROLAC TROMETHAMINE 10 MG TAB PO SCH ×2 (08:01→20:42)
[2023-08-19] MEDS: LEVEMIR (INSULIN DETEMIR) 1 UNITS/0.01ML SC SCH (08:01)
[2023-08-19] MEDS: MUPIROCIN 2% OINT 22 GM TUBE TOP SCH ×2 (08:03→20:42)
[2023-08-19 08:10] LABS: BLOOD UREA NITROGEN 9 MG/DL (9-23); CALCIUM LEVEL 7.8 MG/DL (8.3-10.6); CARBON DIOXIDE LEVEL 36 MMOL/L (20-31); CHLORIDE LEVEL 102 MMOL/L (98-107); CREATININE FOR GFR 0.63 MG/DL (0.55-1.30); GLOMERULAR FILTRATION RATE > 60.0 (>45); GLUCOSE, FASTING 201 MG/DL (74-106); POTASSIUM SERUM 4.3 MMOL/L (3.5-5.1); SODIUM LEVEL 140 MMOL/L (136-145)
[2023-08-19] MEDS ORDERED: ISOVUE-370 76% 100ML VIAL As Ordered ONE (08:12)
[2023-08-19] MEDS ORDERED: FUROSEMIDE 100MG/10ML VIAL IV ONE (09:00)
[2023-08-19] MEDS ORDERED: LACTULOSE 20GM/30ML SYRUP UDC PO ONE (12:40)
[2023-08-19] MEDS ORDERED: DOCUSATE SODIUM 100MG CAPSULE PO SCH (13:00)
[2023-08-19 14:00] VITALS: BP 120/66; TEMP 97.3; O2SAT 96
[2023-08-19 20:00] VITALS: BP 94/51; TEMP 97.7; O2SAT 96
[2023-08-19] MEDS: SENOKOT S TAB PO SCH (20:53)
[2023-08-20 05:22] VITALS: BP 110/51; TEMP 97; O2SAT 94
[2023-08-20] MEDS: FIDAXOMICIN 200 MG TAB (DIFICID) PO SCH ×2 (08:18→20:37)
[2023-08-20] MEDS: DULoxetine 30MG CAPSULE (CYMBALTA) PO SCH (08:18)
[2023-08-20] MEDS: FAMOTIDINE 20 MG TAB PO SCH ×2 (08:18→20:37)
[2023-08-20] MEDS: TORSEMIDE 20 MG TAB PO SCH (08:19)
[2023-08-20] MEDS: LEVEMIR (INSULIN DETEMIR) 1 UNITS/0.01ML SC SCH (08:19)
[2023-08-20] MEDS: INSULIN LISPRO (NovoLOG) PER UNIT SC SCH ×4 (08:19→20:32)
[2023-08-20] MEDS: MUPIROCIN 2% OINT 22 GM TUBE TOP SCH ×2 (08:20→20:54)
[2023-08-20] MEDS: KETOROLAC TROMETHAMINE 10 MG TAB PO SCH ×2 (08:20→20:40)
[2023-08-20] MEDS: SENOKOT S TAB PO SCH (08:20)
[2023-08-20] MEDS ORDERED: INSULIN LISPRO (NovoLOG) PER UNIT SC SCH (12:00)
[2023-08-20] MEDS ORDERED: INSUHUMDS SC (13:23)
[2023-08-20 14:00] VITALS: BP 112/54; TEMP 97.5; O2SAT 96
[2023-08-20] MEDS ORDERED: SIMETHICONE 80MG CHEW TAB PO PRN (17:55)
[2023-08-20 20:20] VITALS: BP 106/52; TEMP 97.3; O2SAT 96
[2023-08-20] MEDS ORDERED: LEVEMIR (INSULIN DETEMIR) 1 UNITS/0.01ML SC SCH ×3 (21:00)
[2023-08-21 05:19] VITALS: BP 128/77; TEMP 97.7; O2SAT 95
[2023-08-21 05:50] LABS: BASO % 0.6 % (0.0-1.0); EOS # 0.2 10^3/uL (0.0-0.5); EOS % 3.3 % (0.0-3.0); HEMATOCRIT 34.7 % (36.0-47.0); HEMOGLOBIN 11.7 g/dl (12.0-15.5); LYMPH # 1.5 10^3/uL (1.5-5.0); LYMPH % 22.2 % (24.0-44.0); MEAN CORPUSCULAR HEMOGLOBIN 32.1 pg (27.0-33.0); MEAN CORPUSCULAR HGB CONC 33.7 g/dl (32.0-36.5); MEAN CORPUSCULAR VOLUME 95.3 fl (80.0-96.0); MONO # 0.6 10^3/uL (0.0-0.8); MONO % 9.4 % (2.0-8.0); NEUTROPHILS # 4.1 10^3/uL (1.5-8.5); PLATELET COUNT, AUTOMATED 603 10^3/uL (150-450); RED BLOOD COUNT 3.64 10^6/uL (4.00-5.40); WHITE BLOOD COUNT 6.6 10^3/uL (4.0-10.0)
[2023-08-21 06:13] LABS: BLOOD UREA NITROGEN 12 MG/DL (9-23); CALCIUM LEVEL 8.7 MG/DL (8.3-10.6); CARBON DIOXIDE LEVEL 34 MMOL/L (20-31); CHLORIDE LEVEL 104 MMOL/L (98-107); CREATININE FOR GFR 0.53 MG/DL (0.55-1.30); GLOMERULAR FILTRATION RATE > 60.0 (>45); GLUCOSE, FASTING 86 MG/DL (74-106); POTASSIUM SERUM 4.3 MMOL/L (3.5-5.1); SODIUM LEVEL 141 MMOL/L (136-145)
[2023-08-21] MEDS: INSULIN LISPRO (NovoLOG) PER UNIT SC SCH ×2 (07:16→13:03)
[2023-08-21] MEDS ORDERED: DICYCLOMINE 10 MG CAP PO PRN (07:20)
[2023-08-21] MEDS: DULoxetine 30MG CAPSULE (CYMBALTA) PO SCH (08:32)
[2023-08-21] MEDS: FIDAXOMICIN 200 MG TAB (DIFICID) PO SCH (08:32)
[2023-08-21] MEDS: FAMOTIDINE 20 MG TAB PO SCH (08:32)
[2023-08-21] MEDS: KETOROLAC TROMETHAMINE 10 MG TAB PO SCH (08:32)
[2023-08-21] MEDS: MUPIROCIN 2% OINT 22 GM TUBE TOP SCH (08:36)
[2023-08-21] MEDS ORDERED: TORSEMIDE 20 MG TAB PO SCH (09:00)
[2023-08-21] MEDS ORDERED: LEVEMIR (INSULIN DETEMIR) 1 UNITS/0.01ML SC SCH (09:00)
[2023-08-21] MEDS ORDERED: DICY1CAP8 PO (11:15)
[2023-08-21] MEDS ORDERED: KETO10TAB PO (11:15)
[2023-08-21] MEDS ORDERED: SIME80TA16 PO (11:15)
[2023-08-21] MEDS ORDERED: FAMO20TA PO (11:15)
[2023-08-21] MEDS ORDERED: FIDA200TA PO (11:15)
[2023-08-21] MEDS ORDERED: INSUHUMDS SC (11:49)
[2023-08-21] MEDS ORDERED: FIDAXOMICIN 200 MG TAB (DIFICID) PO SCH (21:00)
== END 2023-08-21 13:54 | disposition home or self-care (01) | DRG 371 ==
LOC: M ED 12:53 → M ED INP 17:33 → M PCU 21:53 → M MS4PR 08-13 12:50 → M MSPAV 08-18 18:38
PROVIDERS: ADMIT Internal Medicine Nephrology; ATTEND Internal Medicine Nephrology
DX: A04.72 Enterocolitis due to Clostridium difficile, not specified as recurrent (principal); G93.41 Metabolic encephalopathy; E87.1 Hypo-osmolality and hyponatremia; E87.6 Hypokalemia; E83.42 Hypomagnesemia; E86.0 Dehydration; E10.649 Type 1 diabetes mellitus with hypoglycemia without coma; E10.42 Type 1 diabetes mellitus with diabetic polyneuropathy; F32.9 Major depressive disorder, single episode, unspecified; F43.10 Post-traumatic stress disorder, unspecified; R14.0 Abdominal distension (gaseous); G24.01 Drug induced subacute dyskinesia; K59.00 Constipation, unspecified; L57.0 Actinic keratosis; R41.89 Other symptoms and signs involving cognitive functions and awareness; M85.80 Other specified disorders of bone density and structure, unspecified site; K76.0 Fatty (change of) liver, not elsewhere classified; N39.3 Stress incontinence (female) (male); Z87.81 Personal history of (healed) traumatic fracture; Z86.14 Personal history of Methicillin resistant Staphylococcus aureus infection; Z79.4 Long term (current) use of insulin; Z79.899 Other long term (current) drug therapy

== ENCOUNTER 2023-08-27 16:00 | Outpatient (CLI) | payer MEDICARE ==
[~2023-08-27] VITALS: Ht 162.6 cm; Wt 65.0 kg
[~2023-08-27 16:00] MED LIST changes: +DICY1CAP8 PO; +FAMO20TA PO; +FIDA200TA PO; +KETO10TAB PO; +PROBCAP14 PO; +SIME80TA16 PO
[2023-08-27 16:05] VITALS: BP 143/67; O2SAT 98
[2023-08-27] MEDS ORDERED: BEZLOTOXUMAB 650 MG in NS 100 ML IV ONE (16:30)
[2023-08-27 18:30] VITALS: BP 131/62; O2SAT 99
== END 2023-08-27 18:30 ==
LOC: M INFU 16:00
PROVIDERS: ATTEND Internal Medicine Nephrology
DX: A04.71 Enterocolitis due to Clostridium difficile, recurrent (principal)
CPT/HCPCS: 96365; J0565